=== PATIENT | male | born 1965 | race Caucasian/White ===

== ENCOUNTER 2017-07-20 21:24 | Emergency (ER) ==
[2017-07-20 21:35] VITALS: BP 127/85; TEMP 96.5; BMI 22.3
[2017-07-20] MEDS ORDERED: KEFLEX PO STA (23:00)
--- NOTE | 2017-07-20 23:06 | ED.PDOC ---
General ED Provider: Dr. ALKA BAIRD Chief Complaint: Finger Pain/Injury Stated Complaint: Ring on the 4th finger on the left with noted redness, edema. Patient tried to get it off last night with fishing line but unsuccessful. Time Seen by Physician: 23:04 Mode of Arrival: Walk-In Information Source: Patient Exam Limitations: No limitations Nursing and Triage Documentation Reviewed and Agree: Yes Skin Complaint Exam - Laceration/Abrasion/Hand Complaint/Exam Location of Injury: Right, Digit #4 Mechanism of Injury: Laceration, FB potential (Ring stuck with finger swelling.) Onset/Duration: 2 days Symptoms Are: Still present Initial Severity: Moderate Current Severity: Severe Aggravating: Movement Alleviating: None Associated Signs and Symptoms: Reports: Erythema, Tingling Related History: Reports: Right hand dominant Differential Diagnoses: Abrasion, Foreign Body Review of Systems - Review Of Systems Constitutional: Reports: No symptoms Eyes: Reports: No symptoms Ears, Nose, Mouth, Throat: Reports: No symptoms Respiratory: Reports: No symptoms Cardiac: Reports: No symptoms GI: Reports: No symptoms : Reports: No symptoms Musculoskeletal: Reports: Joint pain (swelling) Skin: Reports: No symptoms Neurological: Reports: No symptoms Endocrine: Reports: No symptoms Hematologic/Lymphatic: Reports: No symptoms All Other Systems: Reviewed and Negative Past Medical History - Past Medical History Previously Healthy: Yes Endocrine: Reports: DM 2 Cardiovascular: Reports: None Respiratory: Reports: None Hematological: Reports: None Gastrointestinal: Reports: None Genitourinary: Reports: None Neuro/Psych: Reports: Depression Musculoskeletal: Reports: Arthritis Cancer: Reports: None - Surgical History General Surgical History: Reports: Unknown - Family History Family History: Reports: Diabetes - Social History Smoking Status: Current every day smoker Hx Substance Use: No Alcohol Screening: None - Immunizations Tetanus Shot up to Date: No Physical Exam - Physical Exam Appearance: Ill-appearing, Thin Pain Distress: Moderate Neck: Supple Respiratory: Airway patent, Breath sounds clear, Breath sounds equal, Respirations nonlabored Cardiovascular: RRR Skin: Warm, Dry Psychiatric: Anxious Procedures - Foreign Body Removal Location of Foreign Object: right 4th finger Foreign Object: Ring Type of Anesthesia: None (Declined to have any ) Prep: Saline Irrigation: Yes Skin Incised: Yes Instruments Used: Yes: Forceps, Other (Metal cutters ) Foreign Body Identified and Removed: Yes (Ring ) Critical Care Note - Critical Care Note Total Time (mins): 0 Course - Course Orders, Labs, Meds: Orders Category Date Time Status Cephalexin [Keflex] MEDS 07/20/17 23:00 Discontinued 500 mg PO ONCE STA Medications Discontinued Medications Generic Name Dose Route Start Last Admin Trade Name Cassia PRN Reason Stop Dose Admin Cephalexin 500 mg 07/20/17 23:00 07/20/17 23:20 Keflex PO 07/20/17 23:01 500 mg ONCE STA Administration Vital Signs: Temp Pulse Resp BP Pulse Ox 07/20/17 21:26 96.5 F L 92 H 20 127/85 98 Departure - Departure Time of Disposition: 23:04 Disposition: HOME SELF-CARE Discharge Problem: Pain in finger, Foreign body finger Finger injury Qualifiers: Encounter type: initial encounter Laterality: right Qualified Code(s): S69.91XA - Unspecified injury of right wrist, hand and finger(s), initial encounter Instructions: Finger Sprain (ED) Condition: Fair Pt referred to PMD for follow-up: Yes Additional Instructions: Keep wound clean and dry, Apply dressing daily Take antibiotics a prescribed. Prescriptions: Cephalexin [Keflex] 500 mg PO Q8HR #30 capsule Allergies/Adverse Reactions: Allergies Penicillins Adverse Reaction (Verified 07/20/17 21:33) Home Medications: Ambulatory Orders Cephalexin [Keflex] 500 mg PO Q8HR #30 capsule 07/20/17 Multivitamin [One Daily Multivitamin] 1 each PO DAILY 07/20/17 Disposition Discussed With: Patient, Family
== END 2017-07-20 23:25 | disposition home or self-care (01) ==
LOC: ED 21:24
DX: S60.455A Superficial foreign body of left ring finger, initial encounter (principal); F17.210 Nicotine dependence, cigarettes, uncomplicated
CPT/HCPCS: 99283

== ENCOUNTER 2017-07-31 13:11 | Outpatient (CLI) ==
[2017-07-31 13:19] LABS: BASOPHILS # (AUTO) 0.1 K/uL (0-0.2); BASOPHILS % (AUTO) 0.9 % (0.0-3.0); EOSINOPHILS # (AUTO) 0.2 K/ul (0.0-0.7); EOSINOPHILS % (AUTO) 4.3 % (0.0-7.0); HEMATOCRIT 37.1 % (42.0-52.0); HEMOGLOBIN 13.2 g/dl (14.0-18.0); IMMATURE GRANULOCYTE % (AUTO) 0.2 % (0.0-5.0); LYMPHOCYTES # (AUTO) 1.6 K/uL (0.60-3.4); LYMPHOCYTES % (AUTO) 30.3 (10.0-50.0); MEAN CORPUSCULAR HEMOGLOBIN 29.4 pg (27.0-31.0); MEAN CORPUSCULAR HGB CONC 35.6 (31.8-35.4); MEAN CORPUSCULAR VOLUME 82.6 fl (80.0-94.0); MONOCYTES # (AUTO) 0.3 K/uL (0.4-2.0); MONOCYTES % (AUTO) 5.9 (0-10); NEUTROPHILS # (AUTO) 3.2 K/ul (2.0-6.9); NEUTROPHILS % (AUTO) 58.4; PLATELET COUNT 289 10^3/uL (140-440); RED BLOOD COUNT 4.49 10^6/ul (4.70-6.10); WHITE BLOOD COUNT 5.41 K/ul (4.2-10.2)
[2017-07-31 13:56] LABS: ALBUMIN 3.8 g/dL (3.4-5.0); ALBUMIN/GLOBULIN RATIO 1.09; ANION GAP 14.1; BILIRUBIN,TOTAL 0.34 mg/dL (0.00-1.20); BUN/CREATININE RATIO 11.64; CREATININE 1.46 mg/dL (0.60-1.10); POTASSIUM 5.1 mmol/L (3.5-5.1); TOTAL PROTEIN 7.3 g/dL (6.4-8.2)
== END 2017-07-31 13:12 | disposition home or self-care (01) ==
LOC: LAB 13:11
PROVIDERS: ATTEND Nurse Practitioner Family
DX: E11.9 Type 2 diabetes mellitus without complications (principal); E75.6 Lipid storage disorder, unspecified; Z12.5 Encounter for screening for malignant neoplasm of prostate
CPT/HCPCS: 36415; 80053; 80061; 83036; 84439; 84443; 85025

== ENCOUNTER 2017-08-03 09:57 | Outpatient (CLI) ==
--- NOTE | 2017-08-03 10:40 | CT ---
Exam: CT of the brain without intravenous contrast. Comparison: None available. Reason for exam: Dizziness and giddiness FINDINGS: No acute intracranial hemorrhage, mass effect, ventricular dilatation, or territorial infa rction. The quadrigeminal and ambient cisterns are patent. There is no extraaxial fluid collection. There is mild mucosal thickening in the left frontal sinus. There is a small effusion in the right mastoid air cell. No displaced calvarial fractures are seen. Impression: 1. No acute intracranial findings. 2. Mild mucosal thickening in the left frontal sinus with a small right mastoid air cell effusion.
== END 2017-08-03 09:58 | disposition home or self-care (01) ==
LOC: RAD 09:57
PROVIDERS: ATTEND Nurse Practitioner Family
DX: R42 Dizziness and giddiness (principal); E11.9 Type 2 diabetes mellitus without complications
CPT/HCPCS: 93005; 93010

== ENCOUNTER 2017-08-08 13:39 | Observation (INO) ==
[2017-08-08] MEDS ORDERED: TYLENOL PO PRN (13:54)
[2017-08-08 14:10] VITALS: BMI 20.9
[2017-08-08] MEDS: SODIUM CHLORIDE 1,000 ML IV SCH (14:28)
--- NOTE | 2017-08-08 14:53 | DI ---
EXAM: Two views of the chest. History: Cough. Comparison: Chest radiograph 08/31/2010 Findings: Heart size is within normal limits. No focal consolidation. No appreciable pleural fluid and no pneumothorax. Chronic-appearing compression deformity within the mid thoracic spine. Small nodular density projecting over the left lower lung. Impression: 1. No evidence for pneumonia. 2. Small left lower lung nodular density could represent nipple shadow versus developing lung nodule . Recommend further evaluation with chest radiograph with nipple markers or chest CT.
[2017-08-08 15:00] LABS: BASOPHILS % (AUTO) 0.7 % (0.0-3.0); EOSINOPHILS # (AUTO) 0.2 K/ul (0.0-0.7); EOSINOPHILS % (AUTO) 3.1 % (0.0-7.0); HEMATOCRIT 37.1 % (42.0-52.0); HEMOGLOBIN 13.3 g/dl (14.0-18.0); IMMATURE GRANULOCYTE % (AUTO) 0.3 % (0.0-5.0); LYMPHOCYTES # (AUTO) 1.7 K/uL (0.60-3.4); LYMPHOCYTES % (AUTO) 29.3 (10.0-50.0); MEAN CORPUSCULAR HEMOGLOBIN 29.6 pg (27.0-31.0); MEAN CORPUSCULAR HGB CONC 35.8 (31.8-35.4); MEAN CORPUSCULAR VOLUME 82.6 fl (80.0-94.0); MONOCYTES # (AUTO) 0.3 K/uL (0.4-2.0); MONOCYTES % (AUTO) 4.9 (0-10); NEUTROPHILS # (AUTO) 3.6 K/ul (2.0-6.9); NEUTROPHILS % (AUTO) 61.7; PLATELET COUNT 253 10^3/uL (140-440); RED BLOOD COUNT 4.49 10^6/ul (4.70-6.10)
[2017-08-08 15:17] LABS: ALBUMIN 3.7 g/dL (3.4-5.0); ALBUMIN/GLOBULIN RATIO 1.03; ANION GAP 13.4; BILIRUBIN,TOTAL 0.32 mg/dL (0.00-1.20); BUN/CREATININE RATIO 10.81; CALCIUM 9.8 mg/dL (8.2-10.2); CREATININE 1.48 mg/dL (0.60-1.10); POTASSIUM 4.4 mmol/L (3.5-5.1); TOTAL PROTEIN 7.3 g/dL (6.4-8.2)
[2017-08-08] MEDS: GLUCOPHAGE PO SCH (17:17)
[2017-08-08] MEDS: HUMULIN R SUBCUT PRN ×2 (17:18→20:06)
[2017-08-08 18:39] LABS: BILIRUBIN,URINE Negative (NEGATIVE); KETONES,URINE Negative (NEGATIVE); LEUKOCYTE ESTERASE ,URINE Negative (NEGATIVE); NITRITE,URINE Negative (NEGATIVE); PROTEIN,URINE Negative (NEGATIVE); URINE, BLOOD 1+ (NEGATIVE)
[2017-08-08 19:08] LABS: ADD URINE MICROSCOPIC YES
[2017-08-08 19:10] LABS: BACTERIA,URINE 1+ (NOT PRESENT)
[2017-08-08] MEDS: NEURONTIN PO SCH (20:07)
[2017-08-08] MEDS ORDERED: ATIVAN PO STA (20:41)
[2017-08-08] MEDS ORDERED: NON-FORMULARY MEDICATION (Metformin Hcl [Metformin Hcl] 1,000 MG) PO SCH ×22 (21:00)
[2017-08-09] MEDS: SODIUM CHLORIDE 1,000 ML IV SCH (02:31)
[2017-08-09 04:30] LABS: BASOPHILS % (AUTO) 0.5 % (0.0-3.0); EOSINOPHILS # (AUTO) 0.2 K/ul (0.0-0.7); HEMATOCRIT 32.2 % (42.0-52.0); HEMOGLOBIN 11.4 g/dl (14.0-18.0); IMMATURE GRANULOCYTE % (AUTO) 0.4 % (0.0-5.0); LYMPHOCYTES # (AUTO) 1.7 K/uL (0.60-3.4); LYMPHOCYTES % (AUTO) 21.5 (10.0-50.0); MEAN CORPUSCULAR HEMOGLOBIN 29.4 pg (27.0-31.0); MEAN CORPUSCULAR HGB CONC 35.4 (31.8-35.4); MONOCYTES # (AUTO) 0.4 K/uL (0.4-2.0); MONOCYTES % (AUTO) 5.3 (0-10); NEUTROPHILS # (AUTO) 5.4 K/ul (2.0-6.9); NEUTROPHILS % (AUTO) 69.3; PLATELET COUNT 226 10^3/uL (140-440); RED BLOOD COUNT 3.88 10^6/ul (4.70-6.10); WHITE BLOOD COUNT 7.72 K/ul (4.2-10.2)
[2017-08-09 04:48] LABS: ALBUMIN 3.1 g/dL (3.4-5.0); ALBUMIN/GLOBULIN RATIO 1.15; ANION GAP 11.1; BILIRUBIN,TOTAL 0.19 mg/dL (0.00-1.20); BUN/CREATININE RATIO 18.18; CALCIUM 9.2 mg/dL (8.2-10.2); CREATININE 0.99 mg/dL (0.60-1.10); POTASSIUM 4.1 mmol/L (3.5-5.1); TOTAL PROTEIN 5.8 g/dL (6.4-8.2)
[2017-08-09 05:06] VITALS: BP 138/80; TEMP 98.2
[2017-08-09] MEDS: GLUCOPHAGE PO SCH (08:12)
[2017-08-09] MEDS: NEURONTIN PO SCH (08:12)
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
== END 2017-08-09 08:59 | disposition home or self-care (01) ==
LOC: MEDSURG B 13:39 → INTOOBSV 13:39
PROVIDERS: ADMIT Emergency Medicine; ATTEND Emergency Medicine
DX: E11.65 Type 2 diabetes mellitus with hyperglycemia (principal); T23.002A Burn of unspecified degree of left hand, unspecified site, initial encounter; M19.90 Unspecified osteoarthritis, unspecified site; F32.9 Major depressive disorder, single episode, unspecified; F19.90 Other psychoactive substance use, unspecified, uncomplicated; F17.200 Nicotine dependence, unspecified, uncomplicated; Z79.84 Long term (current) use of oral hypoglycemic drugs; Z79.899 Other long term (current) drug therapy
CPT/HCPCS: 36415; 80053; 81001; 82962; 85025; 87086; 93005; 93010; 96360; 96361

== ENCOUNTER 2017-09-28 11:50 | Outpatient (CLI) ==
--- NOTE | 2017-09-28 13:48 | MRI ---
EXAM: MRI brain without IV contrast. DATE: 09/28/2017. HISTORY: Ataxia, balance disorder. TECHNIQUE: Sagittal T1W, axial T2W, axial FLAIR, axial T1W, axial DWI, and coronal T2W GRE sequences of the brain were obtained using 1.2 Meredith magnet. No IV contrast. Note: Motion artifacts on several sequences limit sensitivity. COMPARISON: CT head 08/03/2017. FINDINGS: The ventricles, cisterns, and most cerebral sulci are are normal in size and configuration . Many parietal lobe sulci bilaterally are slightly prominent. No midline shift, mass effect or abno rmal extra-axial fluid collection is apparent. No acute infarct, hemorrhage or neoplasm is identifie d. The casper - white matter differentiation is normal. The 7th/8th cranial nerve complexes, cerebell opontine angles, brainstem, and visible cervical spinal cord are normal. There is no cerebellar tons illar ectopia. The pituitary gland is normal in size and signal. Corpus callosum is normal in size and configuration. Left vertebral artery is dominant. Vertebrobasilar arterial system is tortuous. Flow voids are present in the major intracranial arteries and in the dural venous sinuses. No aneur ysm, AVM or dural venous sinus thrombosis is apparent. No orbit abnormality is identified. There is limited pneumatization of right mastoid air cells. small number of right mastoid air cells which ar e pneumatized demonstrate T2W bright, T1W intermediate signal. Left mastoid air cells are unremarkab le. There is marked circumferential mucosal thickening in the right maxillary sinus. Several ethmoi d air cells and the left frontal sinus reveal minor mucosal thickening. Leftward nasal septal deviat ion is evident at the level of the middle/superior turbinates. No neck mass or lymphadenopathy is de tected. No calvarial neoplasm or acute fracture is evident. IMPRESSIONS: 1. No acute infarct, hemorrhage, mass or hydrocephalus. 2. Minor bilateral parietal lobe involutional change. 3. Left frontal, bilateral ethmoid, right maxillary sinus disease. 4. Mild right mastoid effusion vs mastoiditis.
== END 2017-09-28 11:51 | disposition home or self-care (01) ==
LOC: RAD 11:50
PROVIDERS: ATTEND Emergency Medicine
DX: R27.0 Ataxia, unspecified (principal); R26.89 Other abnormalities of gait and mobility

== ENCOUNTER 2018-02-07 11:09 | Outpatient (CLI) | END 2018-02-07 11:10 | disposition home or self-care (01) | LOC: LAB 11:09 | PROVIDERS: ATTEND Emergency Medicine | DX: E11.9 Type 2 diabetes mellitus without complications (principal); E75.6 Lipid storage disorder, unspecified; I10 Essential (primary) hypertension | CPT/HCPCS: 36415; 80053; 80061; 83036; 84443; 85025 ==

== ENCOUNTER 2018-02-07 22:32 | Observation (INO) ==
[2018-02-07 23:15] VITALS: BMI 18.4
[2018-02-08] MEDS: HUMULIN R SUBCUT PRN ×2 (00:34→02:11)
[2018-02-08 05:28] VITALS: BP 139/84; TEMP 97.5
[2018-02-08] MEDS ORDERED: GLUCOPHAGE PO SCH (08:00)
[2018-02-08] MEDS ORDERED: ANTIVERT PO SCH (09:00)
[2018-02-08] MEDS ORDERED: NEURONTIN PO SCH (09:00)
[2018-02-08] MEDS ORDERED: WELLBUTRIN XL PO SCH (09:00)
[2018-02-08] MEDS ORDERED: NON-FORMULARY MEDICATION (Metformin Hcl [Metformin Hcl] 1,000 MG) PO SCH (09:00)
[2018-02-08] MEDS ORDERED: NON-FORMULARY MEDICATION (Sitagliptin Phosphate [Januvia] 100 MG) PO SCH (09:00)
[2018-02-08] MEDS ORDERED: JANUVIA PO SCH (09:00)
[2018-02-08] MEDS ORDERED: NON-FORMULARY MEDICATION (Meclizine Hcl [Meclizine Hcl] 12.5 MG) PO SCH (09:00)
[2018-02-08] MEDS ORDERED: NON-FORMULARY MEDICATION (Bupropion Hcl [Wellbutrin Xl] 150 MG) PO SCH (09:00)
[2018-02-08] MEDS ORDERED: INSULIN GLARGINE HUM REC ANLOG 8 UNIT SQ SCH (21:00)
[2018-02-08] MEDS ORDERED: [UNRECOGNIZED DRUG - OTHER] SQ SCH (21:00)
[2018-02-08] MEDS ORDERED: LANTUS SUBCUT SCH (21:00)
--- NOTE | 2018-04-11 13:40 | AMA ---
DATE OF SERVICE: 02/08/18 HISTORY: The patient was admitted for uncontrolled diabetes. By next day morning the patient felt a bit better. Decided that he doesn't want to stay in the hospital. Said that he has to go and take care of some stuff. Explained that this can be very dangerous and can be lethal with given his blood sugars been high. He did not listen and says that he just has to leave the hospital and left the hospital without signing AMA paper. We did explain that in case he decides to change his mind and come back he can come back. ALINA
== END 2018-02-08 09:45 | disposition left against medical advice (07) ==
LOC: MEDSURG B 22:32 → INTOOBSV 22:32
PROVIDERS: ADMIT Emergency Medicine; ATTEND Emergency Medicine
DX: E11.00 Type 2 diabetes mellitus with hyperosmolarity without nonketotic hyperglycemic-hyperosmolar coma (NKHHC) (principal); E86.0 Dehydration; R27.0 Ataxia, unspecified; R42 Dizziness and giddiness; I10 Essential (primary) hypertension; E75.6 Lipid storage disorder, unspecified; H54.3 Unqualified visual loss, both eyes; F17.210 Nicotine dependence, cigarettes, uncomplicated; Z79.899 Other long term (current) drug therapy
CPT/HCPCS: 36415; 80053; 80061; 82962; 83036; 84443; 85025; 99223; 99233

== ENCOUNTER 2018-02-14 13:47 | Emergency (ER) ==
[2018-02-14 13:50] VITALS: BP 103/67; TEMP 99.5; BMI 22.4
[2018-02-14] MEDS ORDERED: SODIUM CHLORIDE 1,000 ML IV STA (13:55)
--- NOTE | 2018-02-14 14:47 | CT ---
EXAM: CT abdomen pelvis without contrast HISTORY: Left upper quadrant pain with nausea COMPARISON: CT abdomen 03/16/2009 TECHNIQUE: Serial axial images of the abdomen pelvis were performed from the lung bases through the inferior pelvis without contrast. These were viewed in multiple planes. FINDINGS: Lung bases demonstrate right lower lobe airway thickening and central lobular ground-glass nodularity. Evaluation is limited due to lack of contrast. The liver is unremarkable. The gallbladder is mildly distended. The adrenal glands are normal. Spleen is unremarkable. Pancreas is normal. Stomach is distended. Small bowel in the abdomen pelvis is unremarkable. The appendix is normal. The colon is unremarkabl e. The prostate is normal. Urinary bladder is large and distended. The osseous structures are unrem arkable. IMPRESSION: No acute abnormality to account for patient's symptoms. The right lower lobe airway thickening and central lobular ground-glass nodularity consistent with sm all airways infection.
--- NOTE | 2018-02-14 15:53 | ED.PDOC ---
General ED Provider: Dr. AREN KLEIN Chief Complaint: Diabetes Stated Complaint: HIGH BLOOD SUGAR OUT PT Time Seen by Physician: 14:00 (SEN WITH CHIDI PT'S NURSE ) Mode of Arrival: Wheelchair Information Source: Patient, Other (PT STATED HIS BLOOD SUGAR WAS TOO HIGH FOR MACHINE TO READ ) Primary Care Provider: [facility] Nursing and Triage Documentation Reviewed and Agree: Yes Reviewed sepsis parameters & appropriate labs ordered?: Yes (NO CHEST PAIN NO NEURO ISSUES OFFERED ) System Inflammatory Response Syndrome: Not Applicable Sepsis Protocol: For patient's 13 years and over: Temp is 96.8 and below OR 101 and greater Pulse >90 BPM Resp >20/minute Acutely Altered Mental Status Are patient's symptoms suggestive of a new infection, such as: -Pneumonia -Skin, Soft Tissue -Endocarditis -UTI -Bone, Joint Infection -Implantable Device -Acute Abdominal Infection -Wound Infection -Meningitis -Blood Stream Catheter Infection -Unknown System Inflammatory Response Syndrome: Not Applicable Endocrine Complaint Exam - Diabetic Complication Complaint/Exam Onset/Duration: TODAY Symptoms Are: Still present Timing: Constant Initial Severity: Moderate Current Severity: Moderate Character: Alert Aggravating: Reports: None Alleviating: Reports: None Associated Signs and Symptoms: Reports: Polyuria, Nausea. Denies: Decreased LOC , Polydipsia, Polyphagia, Weight loss, Abdominal pain, Vomiting, Fever, Diaphoresis, Fruity breath Related History: Reports: Similar episode, DM 2. Denies: Neuropathy, Retinopathy Last Glucometer Reading: TOO HIGH TODAY LUNCH Cardiac Risk Factors: Reports: DM, Hypertension CVA Risk Factors: Reports: DM, Hypertension Serious Bacterial Infection Risk Factors: Reports: None. Denies: Zapien catheter , Permanent venous catheter, Sickle Cell Disease, Ill contact, Travel history, Chemotherapy, HIV, Post Splenectomy, Insect bites Related Surgical History: Reports: None Acetone on Breath: No Dry Mucous Membranes: No Kussmaul Respirations: No Glascow Coma Scale (see protocol): 15 Meningeal Signs: No Focal Weakness: None Focal Sensory Loss: None Gait: Normal Nystagmus Present: No Gag Reflex Present: Yes Finger to Nose: Normal Romberg Test Positive: No Babinski Sign: Negative Right, Negative Left Differential Diagnoses: Diabetic Ketoacidosis, Hyperosmolar State, Hyperglycemia Quality Indicator For Non-Traumatic Chest Pain/Syncope: EKG Performed Review of Systems - Review Of Systems Constitutional: Reports: Malaise, Weakness, Loss of appetite Eyes: Reports: No symptoms Ears, Nose, Mouth, Throat: Reports: No symptoms Respiratory: Reports: No symptoms Cardiac: Reports: No symptoms GI: Reports: No symptoms : Reports: No symptoms Musculoskeletal: Reports: No symptoms Skin: Reports: No symptoms Neurological: Reports: No symptoms Endocrine: Reports: No symptoms Hematologic/Lymphatic: Reports: No symptoms All Other Systems: Reviewed and Negative Past Medical History - Past Medical History Previously Healthy: Yes Endocrine: Reports: DM 2 Cardiovascular: Reports: None Respiratory: Reports: None Hematological: Reports: None Gastrointestinal: Reports: None Genitourinary: Reports: None Neuro/Psych: Reports: Depression Musculoskeletal: Reports: Arthritis Cancer: Reports: None - Surgical History General Surgical History: Reports: Unknown - Family History Family History: Reports: Diabetes - Social History Smoking Status: Current every day smoker, Heavy tobacco smoker Hx Substance Use: No Alcohol Screening: None Physical Exam - Physical Exam Appearance: Well-appearing, No pain distress, Well-nourished Eyes: PRADEEP, EOMI, Conjunctiva clear ENT: Ears normal, Nose normal, Oropharynx normal Respiratory: Airway patent, Breath sounds clear, Breath sounds equal, Respirations nonlabored Cardiovascular: RRR, Pulses normal, No rub, No murmur GI/: Soft, Nontender, No masses, Bowel sounds normal, No Organomegaly Musculoskeletal: Normal strength, ROM intact, No edema, No calf tenderness Skin: Warm, Dry, Normal color Neurological: Sensation intact, Motor intact, Reflexes intact, Cranial nerves intact, Alert, Oriented Psychiatric: Affect appropriate, Mood appropriate Critical Care Note - Critical Care Note Total Time (mins): 0 Course - Course Hematology/Chemistry: 02/14/18 14:00 Orders, Labs, Meds: Lab Review 02/14/18 02/14/18 02/14/18 13:55 14:00 14:00 WBC 6.85 RBC 3.65 L Hgb 10.6 L Hct 31.0 L MCV 84.9 MCH 29.0 MCHC 34.2 RDW Coeff of Joe 13.3 Plt Count 236 Immature Gran % (Auto) 0.6 Neut % (Auto) 74.3 Lymph % (Auto) 17.8 [place] % (Auto) 3.9 Eos % (Auto) 2.8 Baso % (Auto) 0.6 Immature Gran # (Auto) 0.0 Neut # (Auto) 5.1 Lymph # (Auto) 1.2 [place] # (Auto) 0.3 L Eos # (Auto) 0.2 Baso # (Auto) 0.0 Puncture Site Rrad O2 Saturation 96.0 ABG pH 7.369 ABG pCO2 41.9 ABG pO2 82.0 L ABG HCO3 24.2 ABG Total CO2 25 ABG Base Excess -1 Anshu Test + FiO2 % 21.0 Acetone, Qual None Orders Category Date Time Status ABG DRAW REQUEST Stat CARDIO 02/14/18 13:55 Completed EKG-(ED ONLY) Stat CARDIO 02/14/18 13:54 Completed ED IV/MEDIPORT/POWERPORT .ONCE EMERGENCY 02/14/18 13:54 Active ABG Stat LAB 02/14/18 13:55 Completed ACETONE, QUALITATIVE Stat LAB 02/14/18 14:00 Completed CBC W/ AUTO DIFF Stat LAB 02/14/18 14:00 Completed COMPREHENSIVE METABOLIC PANEL Stat LAB 02/14/18 14:00 Received CREATINE KINASE Stat LAB 02/14/18 14:00 Received TROPONIN I Stat LAB 02/14/18 14:00 Received URINALYSIS C & S IF INDICATED Stat LAB 02/14/18 13:54 Uncollected 0.9 % Sodium Chloride [Saline Flush] MEDS 02/14/18 13:54 Active 1 syr IVF PRN PRN Sodium Chloride 0.9% [Sodium Chloride] 1,000 ml MEDS 02/14/18 13:[address] ABDOMEN/PELVIS WO CONTRAST Stat RADS 02/14/18 13:54 Completed Medications Generic Name Dose Route Start Last Admin Trade Name Freq PRN Reason Stop Dose Admin Sodium Chloride 1 syr 02/14/18 13:54 02/14/18 14:22 Saline Flush IVF 1 syr PRN PRN Administration To flush IV Discontinued Medications Generic Name Dose Route Start Last Admin Trade Name Freq PRN Reason Stop Dose Admin Sodium Chloride 1,000 mls @ 1,000 mls/hr 02/14/18 13:55 02/14/18 14:22 Sodium Chloride IV 02/14/18 14:54 1,000 mls/hr BOLUS STA Administration Vital Signs: Temp Pulse Resp BP Pulse Ox 02/14/18 13:47 99.5 F 101 H 20 103/67 96 Departure - Departure Time of Disposition: 15:54 (DISCUSSED THE LABS HOWEVER PT STATED HE WANTS TO LEAVE .RISKS DISCUSSED PT STILL REFUSED TO STAY) Disposition: AMA Discharge Problem: Uncontrolled diabetes mellitus Qualifiers: Diabetes mellitus type: type 2 Instructions: Type 1 Diabetes in Adults (ED) Condition: Good Pt referred to PMD for follow-up: Yes IPMP verified?: No Additional Instructions: Please call your Family Physician as soon as possible to schedule a follow-up appointment. Allergies/Adverse Reactions: Allergies Penicillins Adverse Reaction (Verified 02/14/18 13:50) Disposition Discussed With: Patient
== END 2018-02-14 16:00 | disposition left against medical advice (07) ==
LOC: ED 13:47
DX: E11.9 Type 2 diabetes mellitus without complications (principal); I10 Essential (primary) hypertension; F17.210 Nicotine dependence, cigarettes, uncomplicated
CPT/HCPCS: 36415; 80053; 82009; 82550; 82803; 82962; 84484; 85025; 93005; 93010; 96360; 99284

== ENCOUNTER 2018-02-20 10:23 | Outpatient (CLI) ==
--- NOTE | 2018-02-20 12:02 | US ---
EXAM: ULTRASOUND CAROTID DUPLEX, BILATERAL HISTORY: Dizziness FINDINGS: Aden-scale ultrasound, color Doppler and spectral analysis was performed. Velocities are in meters per second. By aden scale and color Doppler imaging, there appears to be only minimal intimal thickening and scat tered atherosclerotic plaque in both carotid systems, including the bulbs and internal carotid arteri es. RIGHT: External carotid artery peak systolic velocity: 0.7/0.1 Common carotid artery peak systolic velocity/end diastolic velocity: 0.6/0.1 Internal carotid artery peak systolic velocity: 0.7 ICA/CCA peak systolic velocity ratio: 1.2 ICA end diastolic velocity: 0.3 LEFT: External carotid artery peak systolic velocity: 1.0/0.1 Common carotid artery peak systolic velocity/end diastolic velocity: 0.8/0.2 Internal carotid artery peak systolic velocity: 0.6 ICA/CCA peak systolic velocity ratio: 0.8 ICA end diastolic velocity: 0.3 The right and left vertebral arteries were antegrade. IMPRESSION: 1. By aden scale and color Doppler imaging, there appears to be only minimal intimal thickening and scattered atherosclerotic plaque in both carotid systems, including the bulbs and internal carotid ar teries. 2. Internal carotid artery peak systolic velocities and ICA/CCA peak systolic velocity ratios indica te no hemodynamically significant stenosis bilaterally. 3. Both vertebral arteries were antegrade.
== END 2018-02-20 10:24 | disposition home or self-care (01) ==
LOC: RAD 10:23
PROVIDERS: ATTEND Emergency Medicine
DX: R42 Dizziness and giddiness (principal); E11.9 Type 2 diabetes mellitus without complications

== ENCOUNTER 2018-03-30 14:14 | Inpatient (IN) | payer OTHER ==
[2018-03-30 15:04] VITALS: BMI 22.7
[2018-03-30] MEDS ORDERED: TYLENOL PO PRN (15:31)
[2018-03-30] MEDS ORDERED: VANCOMYCIN 1 GM in SODIUM CHLORIDE 250 ML IV ONE (16:00)
[2018-03-30] MEDS ORDERED: INSULIN GLARGINE HUM REC ANLOG 8 UNIT SQ SCH ×2 (17:00→21:00)
[2018-03-30] MEDS ORDERED: [UNRECOGNIZED DRUG - OTHER] SQ SCH (17:00)
--- NOTE | 2018-03-30 17:03 | CT ---
EXAM: CT left foot without contrast. HISTORY: Left first toe wound. COMPARISON: None available. TECHNIQUE: Multiple axial images of the left foot were obtained without intravenous contrast. Image s were reformatted in the sagittal and coronal planes. FINDINGS: Dorsal first toe ulcer noted with adjacent subcutaneous edema. No drainable fluid collect ion or subcutaneous air identified. The underlying cortex of the first proximal and distal phalanges appear intact without osseous destruction or periosteal reaction. There is joint space narrowing wi th spurring at the first MTP joint with cystic change in the medial first metatarsal head and possibl e extraarticular erosions. Small erosions seen in the medial distal aspect of the first proximal pha lanx on axial image 15. No other erosions are seen. No fracture or dislocation detected. There is a linear 1 cm metallic foreign object in the medial subcutaneous tissues of the third digit at the le veronica of the proximal interphalangeal joint. IMPRESSION: 1. Dorsal first toe ulcer without evidence for osteomyelitis. 2. First MTP osteoarthritis. Question gout. 3. A 1 cm metallic foreign object in the subcutaneous tissues medial to the third PIP joint.
[2018-03-30] MEDS: ZESTRIL PO SCH (17:29)
[2018-03-30] MEDS: SODIUM CHLORIDE 1,000 ML IV SCH (17:29)
[2018-03-30] MEDS: LOVENOX SUBCUT SCH (17:29)
[2018-03-30] MEDS: ROCEPHIN 1 GM in SODIUM CHLORIDE 50 ML IV SCH (17:31)
[2018-03-30] MEDS: LANTUS SUBCUT SCH (18:12)
[2018-03-30] MEDS: NEURONTIN PO SCH (20:10)
[2018-03-30] MEDS: ANTIVERT PO SCH (20:11)
[2018-03-30] MEDS ORDERED: [UNRECOGNIZED DRUG - OTHER] SQ SCH (21:00)
[2018-03-30] MEDS ORDERED: NON-FORMULARY MEDICATION (Meclizine Hcl [Meclizine Hcl] 12.5 MG) PO SCH (21:00)
[2018-03-31] MEDS ORDERED: NON-FORMULARY MEDICATION (Sitagliptin Phosphate [Januvia] 100 MG) PO SCH (09:00)
[2018-03-31] MEDS: ANTIVERT PO SCH ×3 (09:54→21:37)
[2018-03-31] MEDS: JANUVIA PO SCH (09:55)
[2018-03-31] MEDS: ZESTRIL PO SCH (09:55)
[2018-03-31] MEDS: NEURONTIN PO SCH ×2 (09:55→21:38)
[2018-03-31] MEDS: LANTUS SUBCUT SCH (09:55)
[2018-03-31] MEDS: WELLBUTRIN XL PO SCH (09:55)
[2018-03-31] MEDS: ROCEPHIN 1 GM in SODIUM CHLORIDE 50 ML IV SCH (09:55)
[2018-03-31] MEDS: LOVENOX SUBCUT SCH (09:57)
[2018-03-31] MEDS: VANCOMYCIN 750 MG in SODIUM CHLORIDE 250 ML IV SCH ×2 (10:46→21:39)
[2018-03-31] MEDS ORDERED: ROCEPHIN ONE (14:23)
[2018-04-01] MEDS: SODIUM CHLORIDE 1,000 ML IV SCH ×2 (02:25→08:21)
[2018-04-01] MEDS: ZESTRIL PO SCH (08:20)
[2018-04-01] MEDS: NEURONTIN PO SCH ×2 (08:20→21:41)
[2018-04-01] MEDS: ANTIVERT PO SCH ×3 (08:20→21:38)
[2018-04-01] MEDS: JANUVIA PO SCH (08:20)
[2018-04-01] MEDS: ROCEPHIN 1 GM in SODIUM CHLORIDE 50 ML IV SCH (08:20)
[2018-04-01] MEDS: WELLBUTRIN XL PO SCH (08:20)
[2018-04-01] MEDS: LOVENOX SUBCUT SCH (08:21)
[2018-04-01] MEDS: LANTUS SUBCUT SCH (08:27)
[2018-04-01] MEDS: VANCOMYCIN 750 MG in SODIUM CHLORIDE 250 ML IV SCH ×2 (09:59→21:37)
[2018-04-01] MEDS: HUMULIN R SUBCUT PRN ×2 (18:44→21:38)
[2018-04-02] MEDS: ROCEPHIN 1 GM in SODIUM CHLORIDE 50 ML IV SCH (09:39)
[2018-04-02] MEDS: ANTIVERT PO SCH ×3 (09:40→20:50)
[2018-04-02] MEDS: JANUVIA PO SCH (09:41)
[2018-04-02] MEDS: ZESTRIL PO SCH (09:41)
[2018-04-02] MEDS: NEURONTIN PO SCH ×2 (09:41→20:51)
[2018-04-02] MEDS: WELLBUTRIN XL PO SCH (09:41)
[2018-04-02] MEDS: LANTUS SUBCUT SCH (09:42)
[2018-04-02] MEDS: LOVENOX SUBCUT SCH (09:44)
[2018-04-02] MEDS: SODIUM CHLORIDE 1,000 ML IV SCH ×2 (09:47→09:48)
[2018-04-02] MEDS: HUMULIN R SUBCUT PRN ×2 (10:45→20:51)
[2018-04-02] MEDS: VANCOMYCIN 750 MG in SODIUM CHLORIDE 250 ML IV SCH ×2 (11:45→20:49)
[2018-04-03] MEDS: SODIUM CHLORIDE 1,000 ML IV SCH (05:24)
[2018-04-03] MEDS: HUMULIN R SUBCUT PRN (05:28)
[2018-04-03 05:44] VITALS: BP 130/75; TEMP 97.9
[2018-04-03] MEDS: ZESTRIL PO SCH (08:07)
[2018-04-03] MEDS: ANTIVERT PO SCH (08:07)
[2018-04-03] MEDS: JANUVIA PO SCH (08:07)
[2018-04-03] MEDS: NEURONTIN PO SCH (08:08)
[2018-04-03] MEDS: WELLBUTRIN XL PO SCH (08:08)
[2018-04-03] MEDS: LOVENOX SUBCUT SCH (08:08)
[2018-04-03] MEDS: ROCEPHIN 1 GM in SODIUM CHLORIDE 50 ML IV SCH (08:08)
[2018-04-03] MEDS: LANTUS SUBCUT SCH (08:09)
[2018-04-03] MEDS: VANCOMYCIN 750 MG in SODIUM CHLORIDE 250 ML IV SCH (10:11)
--- NOTE | 2018-04-03 13:35 | PN ---
DATE OF SERVICE: 04/02/18 SUBJECTIVE: Left first toe wound getting the IV antibiotics. The patient is going out to smoke, strictly advised him not to do. REVIEW OF SYSTEMS: CONSTITUTIONAL: No fever, no chills. HEENT: Normal. ENDOCRINE: No weight gain, no weight loss. CVS: No angina symptoms. No CHF symptoms. No palpitations. No atypical chest pain for CAD. No shortness of breath. No PND, no orthopnea. RESPIRATORY: No cough, no hemoptysis. GI: No nausea, no vomiting. No abdominal pain. : No hematuria. No polyuria. MUSCULOSKELETAL: No joint swelling. PSYCHIATRIC: Not anxious. No depression. No suicidal thoughts. No homicidal thoughts. SKIN: Intact. No rash. PHYSICAL EXAMINATION: V/S: Blood pressure 156/89, respiratory rate 16, heart rate 89, temperature 97.8 with saturation is 99%. HEENT: Normocephalic, atraumatic. Mucosa dry. Pallor positive. No icterus. NECK: Supple. No JVD, no carotid bruit. No lymphadenopathy. LUNGS: Clear to auscultation. No rales or rhonchi. HEART: S1, S2 normal. No S3. No murmur, gallop or regurgitation. ABDOMEN: Soft, nontender. Bowel sounds active. No rigidity. No rebound or guarding. No CVA tenderness. EXTREMITIES: No cyanosis, clubbing or pedal edema. Left big toe the wound has more drainage today, yellow to bloody looking. Margins are red and healthy. Swelling in the left foot is better. MUSCULOSKELETAL: No joint swelling. NEUROLOGIC: Awake, alert, oriented times three. No focal deficit. LYMPHATIC: No lymph nodes palpable. SKIN: Intact. LABS: Sodium 137, potassium 4.3, chloride 106, bicarb 25, BUN 20, creatinine 1.17 and glucose 162. WBC 7.47, hgb 9.2, hct 27.2, plt count 256. ASSESSMENT: 1. Left toe ulcer growing, Morganella Morganii 2. Diabetes foot 3. Diabetes uncontrolled, A1c 14.4 4. Hypertension 5. Dyslipidemia 6. Legally blind 7. Methamphetamine user PLAN: 1. Continue the Rocephin and Vancomycin 2. Initially done the CT scan of the left foot and did not show any osteomyelitis which was discussed with the patient TIME SPENT: More than 35 minutes MTDD
--- NOTE | 2018-04-03 13:42 | PN ---
DATE OF SERVICE: 04/01/18 SUBJECTIVE: The patient was admitted with the left big toe ulcer. Been getting IV antibiotics. Swelling in the toe and foot are better. REVIEW OF SYSTEMS: CONSTITUTIONAL: No fever, no chills. HEENT: Normal. ENDOCRINE: No weight gain, no weight loss. CVS: No angina symptoms. No CHF symptoms. No palpitations. No atypical chest pain for CAD. No shortness of breath. No PND, no orthopnea. RESPIRATORY: No cough, no hemoptysis. GI: No nausea, no vomiting. No abdominal pain. : No hematuria. No polyuria. MUSCULOSKELETAL: No joint swelling. PSYCHIATRIC: Not anxious. No depression. No suicidal thoughts. No homicidal thoughts. SKIN: Intact. No rash. PHYSICAL EXAMINATION: V/S: Blood pressure 154/90, respiratory rate 20, heart rate 87, temperature 98.2 and saturation 99%. HEENT: Normocephalic, atraumatic. Mucosa dry. Pallor positive. No icterus. NECK: Supple. No JVD, no carotid bruit. No lymphadenopathy. LUNGS: Clear to auscultation. No rales or rhonchi. HEART: S1, S2 normal. No S3. No murmur, gallop or regurgitation. ABDOMEN: Soft, nontender. Bowel sounds active. No rigidity. No rebound or guarding. No CVA tenderness. EXTREMITIES: No cyanosis, clubbing. 1+ pitting edema in the leg. Left big toe swelling and redness is better. Left big toe open ulcer still has a lot of oozing clear to yellow puss. MUSCULOSKELETAL: No joint swelling. NEUROLOGIC: Awake, alert, oriented times three. No focal deficit. LYMPHATIC: No lymph nodes palpable. SKIN: Intact. LABS: WBC 7.47, hgb 9.2, hct 27.2, plt count 256, sodium 137, potassium 4.3, chloride 106, bicarb 25, BUN 20, creatinine 1.17, glucose 162. ASSESSMENT: 1. Left first toe ulcer growing Morganella Morganii 2. Diabetes uncontrolled 3. Noncompliance 4. Legally blind 5. Hypertension 6. Dyslipidemia 7. Methamphetamine user PLAN: 1. Continue the Rocephin 2. Vancomycin 3. Accu-checks with coverage 4. Keep the legs elevated. TIME SPENT: More than 35 minutes MTDD
--- NOTE | 2018-04-03 15:13 | PN ---
DATE OF SERVICE: 03/31/18 SUBJECTIVE: The patient was admitted from the clinic for the left first toe ulcer and the cellulitis and whole foot was swollen. CT of the foot did not show any osteomyelitis. ESR was 95. Started on the antibiotics Rocephin and Vancomycin. Accu-checks been checked and sugars been controlled. The patient's redness and swelling is still present, hurts to walk otherwise no fever or chills. Toxicology screen came positive for the amphetamine and methamphetamine. REVIEW OF SYSTEMS: CONSTITUTIONAL: No fever, no chills. HEENT: Normal. ENDOCRINE: No weight gain, no weight loss. CVS: No angina symptoms. No CHF symptoms. No palpitations. No atypical chest pain for CAD. No shortness of breath. No PND, no orthopnea. RESPIRATORY: No cough, no hemoptysis. GI: No nausea, no vomiting. No abdominal pain. : No hematuria. No polyuria. MUSCULOSKELETAL: No joint swelling. PSYCHIATRIC: Not anxious. No depression. No suicidal thoughts. No homicidal thoughts. SKIN: Intact. No rash. PHYSICAL EXAMINATION: V/S: Blood pressure 127/68, respiratory rate 18, heart rate 93, temperature 97.3 , saturation 96%. HEENT: Normocephalic, atraumatic. Mucosa dry. Pallor positive. No icterus. NECK: Supple. No JVD, no carotid bruit. No lymphadenopathy. LUNGS: Clear to auscultation. No rales or rhonchi. HEART: S1, S2 normal. No S3. No murmur, gallop or regurgitation. ABDOMEN: Soft, nontender. Bowel sounds active. No rigidity. No rebound or guarding. No CVA tenderness. EXTREMITIES: No cyanosis, clubbing or pedal edema. Left big toe swelling and redness is present. Open area warm to touch and tender to touch. Range of motion is decreased. The swelling and warmness is up to the ankle area. whole foot is swollen. MUSCULOSKELETAL: No joint swelling. NEUROLOGIC: Awake, alert, oriented times three. No focal deficit. LYMPHATIC: No lymph nodes palpable. SKIN: Intact. LABS: WBC 9.23, hgb 9.2, hct 26.7, plt count 255, sodium 136, potassium 4.2, chloride 103, bicarb 24, BUN 20, creatinine 1.33, glucose 147. ASSESSMENT: 1. Left first toe ulcer with cellulitis 2. Methamphetamine positive 3. Diabetes, labile 4. Legally blind 5. Ataxia 6. Recurrent falls 7. Hypertension 8. Noncompliance PLAN: 1. Continue the Rocephin and Vancomycin 2. Accu-checks with coverage 3. Daily I&O's TIME SPENT: More than 35 minutes MTDD
--- NOTE | 2018-04-04 09:18 | DS ---
DATE OF SERVICE: 04/03/18 FINAL DIAGNOSIS: 1. Left great toe ulcer 2. Cellulitis of the left foot 3. Diabetes foot ulcer 4. Diabetes type 2, uncontrolled 5. Hypertension 6. Neuropathy 7. Anemia 8. Tobacco use 9. Blindness in the eye 10.Ataxia under evaluation 11.Substance use disorder DISCHARGE INSTRUCTIONS: Discharge the patient home. Followup in the [facility] within 5-7 days. [facility] MEDICATIONS AT DISCHARGE: Wellbutrin Neurontin Januvia Zestril Meclizine Lantus increased to 10 units NEW PRESCRIPTIONS: Bactrim DIET INSTRUCTIONS: Cardiac and Diabetic diet ACTIVITY: As much as tolerated DISEASE SPECIFIC EDUCATION: Left toe ulcer and risk of osteomyelitis been discussed and amputation risk been discussed and verbalized understanding. HOSPITAL COURSE: Harsh Blum 52 year old male, poorly controlled diabetes, came to the office with the left first toe ulcer. Left foot is swollen and red. Admitted because of the diabetes and the poorly controlled diabetes. WBC 11.75 with left shift, creatinine was normal. Sugar 307. Drug screen positive for the amphetamine and methamphetamine. CT of the foot did not show any acute osteomyelitis. Elevated ESR present. Started on the Rocephin and Vancomycin. Wet to dry dressing was done. Cultures obtained; Morganella Morganii which is sensitive to the Bactrim. Gradually the left foot swelling is better. The swelling localized more to the left great toe. Ulcer is becoming dry and started slowly bleeding and some scabbing is present. The patient been up and about walking and going to the smoke. At that time the patient being discharged home with oral antibiotics and strictly explained the risk of the osteomyelitis is still there. The patient verbalized understanding. TIME SPENT: MORE THAN 65 MINUTES MTDD
== END 2018-04-03 10:20 | disposition home or self-care (01) | DRG 603 ==
LOC: MEDSURG A 14:14
PROVIDERS: ADMIT Emergency Medicine; ATTEND Emergency Medicine
DX: L03.032 Cellulitis of left toe (principal); L03.116 Cellulitis of left lower limb; B96.89 Other specified bacterial agents as the cause of diseases classified elsewhere; E11.621 Type 2 diabetes mellitus with foot ulcer; I10 Essential (primary) hypertension; G62.9 Polyneuropathy, unspecified; D64.9 Anemia, unspecified; R27.0 Ataxia, unspecified; E75.6 Lipid storage disorder, unspecified; H54.7 Unspecified visual loss; F19.90 Other psychoactive substance use, unspecified, uncomplicated; F17.219 Nicotine dependence, cigarettes, with unspecified nicotine-induced disorders; Z91.19 Patient's noncompliance with other medical treatment and regimen; Z16.11 Resistance to penicillins; Z16.39 Resistance to other specified antimicrobial drug
CPT/HCPCS: 36415; 80053; 80202; 80306; 82962; 85025; 85651; 87040; 87070; 87081; 87186; 97802

== ENCOUNTER 2018-04-24 15:52 | Outpatient (CLI) ==
--- NOTE | 2018-04-24 16:37 | DI ---
EXAM: Three views of the left great toe HISTORY: Swelling for 1 month with no known injury. COMPARISON: CT left foot 03/30/2018 FINDINGS: There are has been interval lytic destructive changes of the distal aspect of the proximal phalanx and the proximal aspect of the distal phalanx of the IP joint of the great toe. There is sof t tissue swelling and soft tissue injury. There is mild degenerative change of the first MTP joint. The adjacent osseous structures are unremarkable. IMPRESSION: Lytic osseous destruction or surrounding the IP joint of the great toe with soft tissue swelling sugg estive of osteomyelitis.
== END 2018-04-24 15:53 | disposition home or self-care (01) ==
LOC: RAD 15:52
PROVIDERS: ATTEND Emergency Medicine
DX: L03.116 Cellulitis of left lower limb (principal); L97.522 Non-pressure chronic ulcer of other part of left foot with fat layer exposed
CPT/HCPCS: 36415; 85027

== ENCOUNTER 2018-04-27 12:31 | Inpatient (IN) ==
[2018-04-27 13:01] VITALS: BMI 22.0
[2018-04-27] MEDS ORDERED: VANCOMYCIN 1 GM in SODIUM CHLORIDE 250 ML IV ONE (13:30)
[2018-04-27] MEDS: SODIUM CHLORIDE 1,000 ML IV SCH (14:02)
[2018-04-27] MEDS: ROCEPHIN 1 GM in SODIUM CHLORIDE 50 ML IV SCH (14:02)
[2018-04-27] MEDS: LOVENOX SUBCUT SCH (14:06)
[2018-04-27] MEDS: LIBRIUM PO SCH ×3 (14:06→20:46)
--- NOTE | 2018-04-27 14:57 | CT ---
Exam: CT of the left foot without intravenous contrast. Comparison: X-ray of the toes performed 04/24/2018. CT left foot performed 03/30/2018. Reason for exam: Great toe ulcer, rule out osteomyelitis. FINDINGS: There is osseous destruction in the right first distal and mid phalanx with multiple fracture fragmen ts spanning the joint space. Soft tissue swelling is seen adjacent to this location with surrounding inflammatory change. No discrete fluid collection is seen. The second, third, fourth and fifth digits appear grossly unremarkable. The metatarsals and tarsal b ones appear grossly unremarkable with mild to moderate degenerative disease. Impression: Osseous destruction of the right first distal and middle phalanx consistent with osteomyelitis and/or , trauma. MRI may be performed for further characterization.
[2018-04-27] MEDS: NEURONTIN PO SCH (20:46)
[2018-04-28] MEDS ORDERED: INSULIN GLARGINE HUM REC ANLOG 10 UNIT SQ SCH (09:00)
[2018-04-28] MEDS ORDERED: [UNRECOGNIZED DRUG - OTHER] SQ SCH (09:00)
[2018-04-28] MEDS ORDERED: NON-FORMULARY MEDICATION (Sitagliptin Phosphate [Januvia] 100 MG) PO SCH (09:00)
[2018-04-28] MEDS: ROCEPHIN 1 GM in SODIUM CHLORIDE 50 ML IV SCH (09:21)
[2018-04-28] MEDS: WELLBUTRIN XL PO SCH (09:22)
[2018-04-28] MEDS: LIBRIUM PO SCH ×3 (09:22→20:02)
[2018-04-28] MEDS: JANUVIA PO SCH (09:22)
[2018-04-28] MEDS: LOVENOX SUBCUT SCH (09:23)
[2018-04-28] MEDS: LANTUS SUBCUT SCH (09:23)
[2018-04-28] MEDS: NEURONTIN PO SCH ×2 (09:25→20:02)
[2018-04-28] MEDS: VANCOMYCIN 500 MG in SODIUM CHLORIDE 100 ML IV SCH ×2 (10:10→20:03)
[2018-04-28] MEDS: HUMULIN R SUBCUT PRN ×2 (17:35→21:06)
[2018-04-28] MEDS: TYLENOL PO PRN (20:02)
[2018-04-28] MEDS: SODIUM CHLORIDE 1,000 ML IV SCH ×2 (21:23)
[2018-04-29] MEDS: ROCEPHIN 1 GM in SODIUM CHLORIDE 50 ML IV SCH (08:10)
[2018-04-29] MEDS: NEURONTIN PO SCH ×2 (08:11→20:18)
[2018-04-29] MEDS: JANUVIA PO SCH (08:11)
[2018-04-29] MEDS: LIBRIUM PO SCH ×3 (08:11→20:18)
[2018-04-29] MEDS: WELLBUTRIN XL PO SCH (08:11)
[2018-04-29] MEDS: LOVENOX SUBCUT SCH (08:11)
[2018-04-29] MEDS: LANTUS SUBCUT SCH (08:18)
[2018-04-29] MEDS: TYLENOL PO PRN (08:23)
[2018-04-29] MEDS: VANCOMYCIN 500 MG in SODIUM CHLORIDE 100 ML IV SCH (08:55)
[2018-04-29] MEDS: SODIUM CHLORIDE 1,000 ML IV SCH ×2 (12:06→17:21)
[2018-04-29] MEDS: HUMULIN R SUBCUT PRN ×3 (12:07→20:18)
[2018-04-29] MEDS: VANCOMYCIN 750 MG in SODIUM CHLORIDE 250 ML IV SCH (20:18)
[2018-04-30] MEDS: HUMULIN R SUBCUT PRN ×2 (05:31→11:10)
[2018-04-30] MEDS: SODIUM CHLORIDE 1,000 ML IV SCH (05:34)
[2018-04-30] MEDS: NEURONTIN PO SCH (09:18)
[2018-04-30] MEDS: LIBRIUM PO SCH ×2 (09:18→09:27)
[2018-04-30] MEDS: ROCEPHIN 1 GM in SODIUM CHLORIDE 50 ML IV SCH (09:19)
[2018-04-30] MEDS: JANUVIA PO SCH (09:19)
[2018-04-30] MEDS: WELLBUTRIN XL PO SCH (09:19)
[2018-04-30] MEDS: LOVENOX SUBCUT SCH (09:19)
[2018-04-30] MEDS: LANTUS SUBCUT SCH (09:20)
--- NOTE | 2018-04-30 09:26 | PN ---
DATE OF SERVICE: 04/28/18 SUBJECTIVE: The patient was admitted with the left toe osteomyelitis. The patient was recently admitted to the hospital for the cellulitis but was noncompliant with the medication and treatment plan. Came back with the swollen foot. CT scan shows the osteomyelitis. He was started on the antibiotics Rocephin and Vancomycin. The patient's sister is in the room, What are the possible outcomes of osteomyelitis, amputation of the toe and amputation of the foot been discussed with the patient and family in detail. REVIEW OF SYSTEMS: CONSTITUTIONAL: No fever, no chills. HEENT: Normal. ENDOCRINE: No weight gain, no weight loss. CVS: No angina symptoms. No CHF symptoms. No palpitations. No atypical chest pain for CAD. No shortness of breath. No PND, no orthopnea. RESPIRATORY: No cough, no hemoptysis. GI: No nausea, no vomiting. No abdominal pain. : No hematuria. No polyuria. MUSCULOSKELETAL: No joint swelling. PSYCHIATRIC: Not anxious. No depression. No suicidal thoughts. No homicidal thoughts. SKIN: Intact. No rash. PHYSICAL EXAMINATION: V/S: Blood pressure 117/74, respiratory rate 20, heart 94 temperature 97.8. HEENT: Normocephalic, atraumatic. Mucosa dry. Pallor positive. No icterus. The patient is legally blind. NECK: Supple. No JVD, no carotid bruit. No lymphadenopathy. LUNGS: Clear to auscultation. No rales or rhonchi. HEART: S1, S2 normal. No S3. No murmur, gallop or regurgitation. ABDOMEN: Soft, nontender. Bowel sounds active. No rigidity. No rebound or guarding. No CVA tenderness. EXTREMITIES: No cyanosis, clubbing or pedal edema. Left foot swelling is present. Left great toe is swollen on the dorsum of the left great toe, 2-3cm ulcer present. Warm to touch, can see some puss. MUSCULOSKELETAL: No joint swelling. NEUROLOGIC: Awake, alert, oriented times three. No focal deficit. LYMPHATIC: No lymph nodes palpable. SKIN: Intact. LABS: WBC 7.32, hgb 10.0, hct 29.9, plt count 198, sodium 137, potassium 4.4, chloride 106, bicarb 24, BUN 22, creatinine 1.51, glucose 298 ASSESSMENT: 1. Left great toe osteomyelitis 2. Noncompliance with medication and treatment 3. Anemia 4. Diabetes, labile 5. Hypertension 6. Dyslipidemia 7. Osteoarthritis 8. Methamphetamine use 9. Ataxia 10.Legally blind PLAN: 1. Continue Rocephin and Vancomycin 2. Keep the foot elevated 3. Accu-checks with coverage. TIME SPENT: More than 35 minutes MTDD
--- NOTE | 2018-04-30 09:38 | PN ---
DATE OF SERVICE: 04/29/18 SUBJECTIVE: Left toe is still swollen, no pain and no drainage at this time. He is being treated for the osteomyelitis. Sugars been under control 131 today. REVIEW OF SYSTEMS: CONSTITUTIONAL: No fever, no chills. HEENT: Normal. ENDOCRINE: No weight gain, no weight loss. CVS: No angina symptoms. No CHF symptoms. No palpitations. No atypical chest pain for CAD. No shortness of breath. No PND, no orthopnea. RESPIRATORY: No cough, no hemoptysis. GI: No nausea, no vomiting. No abdominal pain. : No hematuria. No polyuria. MUSCULOSKELETAL: No joint swelling. PSYCHIATRIC: Not anxious. No depression. No suicidal thoughts. No homicidal thoughts. SKIN: Intact. No rash. PHYSICAL EXAMINATION: V/S: Blood pressure 178/101, respiratory rate 20, heart rate 97.7. HEENT: Normocephalic, atraumatic. Mucosa dry. Pallor positive. NECK: Supple. No JVD, no carotid bruit. No lymphadenopathy. LUNGS: Clear to auscultation. No rales or rhonchi. HEART: S1, S2 normal. No S3. No murmur, gallop or regurgitation. ABDOMEN: Soft, nontender. Bowel sounds active. No rigidity. No rebound or guarding. No CVA tenderness. EXTREMITIES: No cyanosis, clubbing or pedal edema. Left first toe is swollen, warm to touch. Pulses are 1+ in the left dorsalis pedis. No drainage at this time. MUSCULOSKELETAL: No joint swelling. NEUROLOGIC: Awake, alert, oriented times three. No focal deficit. LYMPHATIC: No lymph nodes palpable. SKIN: Intact. LABS: Sodium 137, potassium 4.1, chloride 107, bicarb 25, BUN 16, creatinine 1.14, glucose 131. WBC 3.46, hgb 9.8, hct 29.2, plt count 197. ASSESSMENT: 1. Left big toe osteomyelitis 2. Anemia 3. Noncompliance 4. Diabetes, labile 5. Hypertension 6. Legally blind 7. Ataxia PLAN: 1. Continue Rocephin 1 gram daily 2. Vancomycin 1 gram daily 3. IV fluids 4. Accu-checks with coverage. TIME SPENT: More than 35 minutes MTDD
[2018-04-30] MEDS: VANCOMYCIN 750 MG in SODIUM CHLORIDE 250 ML IV SCH (10:08)
[2018-04-30 10:19] VITALS: BP 165/92; TEMP 97.8
--- NOTE | 2018-04-30 21:03 | PCM.HOSP ---
- Initial Hospital Care [id number] 70 Minutes Bedside ([id number]): 04/27 - Subsequent Care [id number] 35 Minutes per Day ([id number]): 04/28. 04/29 - Hospital Discharge [id number] More than 30 Minutes ([id number]): 04/30
--- NOTE | 2018-05-02 14:45 | DS ---
DATE OF SERVICE: 04/30/18 FINAL DIAGNOSIS: 1. LEFT FIRST TOE OSTEOMYELITIS 2. DIABETES MELLITUS, UNCONTROLLED 3. ANEMIA, FAILED TREATMENT OUTPATIENT 4. ATAXIA 5. LEGALLY BLIND; BLINDNESS LEFT EYE 6. COPD 7. SUBSTANCE USE 8. OSTEOARTHRITIS 9. DJD SPINE DISCHARGE INSTRUCTIONS: 1. Transfer the patient to [facility] for followup with clinical services director and higher care. 2. Accu-Checks with coverage. MEDICATIONS AT DISCHARGE: Rocephin Vancomycin Basaglar Januvia Lovenox Librium NEW PRESCRIPTIONS: None DIET INSTRUCTIONS: Diabetic diet ACTIVITY: Bed rest DISEASE SPECIFIC EDUCATION: Osteomyelitis, risk of amputation, antibiotic use and diarrhea discussed. HOSPITAL COURSE: This is a 52-year-old male who initially was admitted to the hospital on March 30 for the left toe ulcer and the ulcer did grow Morganella Morganii and was started on IV antibiotics. The patient refused to stay at that time in the hospital and after three days he reminded us that he had to go home. At that time the patient was discharged home as the patient is a regular clinic patient. He went home, stopped taking the medication, came back for followup on 04/24 to the clinic. The left toe is swollen, red and tender. ESR and x-ray was done which showed osteomyelitis. At that time we called the patient for admission. Finally he showed up on 04/27 for admission. He was started on Rocephin and Vancomycin. CT of the foot was done which showed definitive diagnosis of osteomyelitis. The patient is always very noncompliant and ever since he was admitted just wanted to go home. He has a history of polysubstance abuse, Amphetamine and Methamphetamine. The patient was explained about the risk of amputation and we did talk to [facility] doctors who were courteous enough to accept the patient and is being transferred for possible treatment of left first toe osteomyelitis. The patient was discussed about possibility of amputation of the toe vs foot depending on the studies and treatment there. TIME SPENT: MORE THAN 65 MINUTES MTDD
== END 2018-04-30 12:25 | disposition short-term general hospital (02) | DRG 594 ==
LOC: MEDSURG B 12:31
PROVIDERS: ADMIT Emergency Medicine; ATTEND Emergency Medicine
DX: L97.529 Non-pressure chronic ulcer of other part of left foot with unspecified severity (principal); E11.621 Type 2 diabetes mellitus with foot ulcer; D64.9 Anemia, unspecified; R27.0 Ataxia, unspecified; I10 Essential (primary) hypertension; M19.90 Unspecified osteoarthritis, unspecified site; M47.9 Spondylosis, unspecified; J44.9 Chronic obstructive pulmonary disease, unspecified; H54.7 Unspecified visual loss; F19.90 Other psychoactive substance use, unspecified, uncomplicated; Z91.19 Patient's noncompliance with other medical treatment and regimen
CPT/HCPCS: 36415; 80053; 82962; 85025; 85651; 87081

== ENCOUNTER 2018-04-30 12:30 | Outpatient (CLI) | END 2018-04-30 12:54 | disposition short-term general hospital (02) | LOC: AMBL 12:30 | PROVIDERS: ATTEND Emergency Medicine | DX: M86.9 Osteomyelitis, unspecified (principal) ==

== ENCOUNTER 2018-07-19 18:57 | Outpatient (CLI) | END 2018-07-19 18:58 | disposition home or self-care (01) | LOC: LAB 18:57 | PROVIDERS: ATTEND Nurse Practitioner Family | DX: I10 Essential (primary) hypertension (principal); E11.9 Type 2 diabetes mellitus without complications; Z12.5 Encounter for screening for malignant neoplasm of prostate | CPT/HCPCS: 36415; 80053; 80061; 83036; 84443; 85025 ==

== ENCOUNTER 2018-07-23 21:26 | Emergency (ER) ==
[2018-07-23 21:47] VITALS: BP 138/84; TEMP 97.4; BMI 22.4
[2018-07-23] MEDS ORDERED: VANCOMYCIN 1 GM in SODIUM CHLORIDE 250 ML IV STA (22:08)
--- NOTE | 2018-07-23 23:28 | CT ---
Exam: CT left foot without contrast History: Gangrene of the second digit Technique: [address] of the left foot FINDINGS: Peripheral edema and swelling of the foot and ankle. Amputation of the first digit at the metatarsophalangeal joint. No acute bony erosive changes are seen. No soft tissue gas or obvious f luid collection. Impression: 1. Peripheral edema of the foot. No soft tissue gas is seen. 2. No acute bony erosions
--- NOTE | 2018-07-23 23:35 | DI ---
Exam: Chest one-view History: Gangrene of the foot FINDINGS: Normal cardiomediastinal contours appear normal pulmonary vasculature. No infiltrative op acities. Question lucent expansion of the posterior ninth rib on the left. No acute chest wall abno rmalities otherwise. Impression: No acute cardiopulmonary disease Question lucent expansion of the posterior ninth rib on the left. Correlate with rib radiograph.
--- NOTE | 2018-07-24 00:11 | ED.PDOC ---
General ED Provider: Dr. KEERTHI ROMAN-ER Chief Complaint: Non-specific Complaint Stated Complaint: my toe is swollen Time Seen by Physician: 21:30 Mode of Arrival: Wheelchair Information Source: Patient Exam Limitations: No limitations Primary Care Provider: LEFTY [facility] Nursing and Triage Documentation Reviewed and Agree: Yes Does patient meet sepsis criteria?: No System Inflammatory Response Syndrome: Not Applicable Sepsis Protocol: For patient's 13 years and over: Temp is 96.8 and below OR 101 and greater Pulse >90 BPM Resp >20/minute Acutely Altered Mental Status Are patient's symptoms suggestive of a new infection, such as: -Pneumonia -Skin, Soft Tissue -Endocarditis -UTI -Bone, Joint Infection -Implantable Device -Acute Abdominal Infection -Wound Infection -Meningitis -Blood Stream Catheter Infection -Unknown Skin Complaint Exam - Skin/Soft Tissue Complaint/Exam Onset/Duration: unknown Symptoms Are: Still present Timing: Constant Initial Severity: Mild Current Severity: Mild Location: left 2nd toe Character: Reports: Redness, Swelling, Raised Aggravating: Reports: None Alleviating: Reports: None Associated Signs and Symptoms: Reports: Drainage, Tenderness Related Surgical History: Reports: None Recent Exposure to Others w/Similar Symptoms: No Skin Findings: Present: Erythema, Induration, Dry ulceration Joint Tenderness Present: No Differential Diagnoses: Cellulitis, Infection Review of Systems - Review Of Systems Constitutional: Reports: No symptoms Eyes: Reports: No symptoms Ears, Nose, Mouth, Throat: Reports: No symptoms Respiratory: Reports: No symptoms Cardiac: Reports: No symptoms GI: Reports: No symptoms : Reports: No symptoms Musculoskeletal: Reports: No symptoms Skin: Reports: Rash Neurological: Reports: No symptoms Endocrine: Reports: No symptoms Hematologic/Lymphatic: Reports: No symptoms All Other Systems: Reviewed and Negative Past Medical History - Past Medical History Previously Healthy: Yes Endocrine: Reports: DM 2 Cardiovascular: Reports: None Respiratory: Reports: None Hematological: Reports: None Gastrointestinal: Reports: None Genitourinary: Reports: None Neuro/Psych: Reports: Depression Musculoskeletal: Reports: Arthritis Cancer: Reports: None - Surgical History General Surgical History: Reports: Unknown - Family History Family History: Reports: Diabetes - Social History Smoking Status: Current every day smoker, Heavy tobacco smoker Hx Substance Use: No Alcohol Screening: Occasionally - Immunizations Tetanus Shot up to Date: No (unsure when) Physical Exam - Physical Exam Appearance: Well-appearing, No pain distress, Well-nourished Eyes: PRADEEP ENT: Ears normal, Nose normal, Oropharynx normal Neck: Supple Respiratory: Airway patent, Breath sounds clear, Breath sounds equal, Respirations nonlabored Cardiovascular: RRR, Pulses normal, No rub, No murmur GI/: Soft, Nontender, No masses, Bowel sounds normal, No Organomegaly Musculoskeletal: Normal strength, ROM intact, No edema, No calf tenderness Skin: Warm Neurological: Sensation intact, Motor intact, Reflexes intact, Cranial nerves intact, Alert, Oriented Psychiatric: Affect appropriate, Mood appropriate Interpretation - Radiology Interpretation Radiology Interpretation By: Radiologist Exam Interpreted: CT Scan - Test Kitchen Home Economist Ectopy: PACs - EKG Interpretation Time of EKG #1: 00:11 Rate: Normal Rhythm: Sinus Ectopy: None [place]: NL ST Segment: Normal Interpretation: nsr Critical Care Note - Critical Care Note Total Time (mins): 0 Course - Course Hematology/Chemistry: 07/23/18 22:44 07/23/18 22:44 Orders, Labs, Meds: Lab Review 07/23/18 07/23/18 07/23/18 22:05 22:25 22:25 WBC RBC Hgb Hct MCV MCH MCHC RDW Coeff of Joe Plt Count Immature Gran % (Auto) Neut % (Auto) Lymph % (Auto) Mathews % (Auto) Eos % (Auto) Baso % (Auto) Immature Gran # (Auto) Neut # (Auto) Lymph # (Auto) Mathews # (Auto) Eos # (Auto) Baso # (Auto) Puncture Site Rbrach O2 Saturation 99.0 ABG pH 7.445 ABG pCO2 35.8 ABG pO2 120.0 H ABG HCO3 24.6 ABG Total CO2 26 ABG Base Excess 1 Anshu Test + FiO2 % 21.0 Sodium Potassium Chloride Carbon Dioxide Anion Gap BUN Creatinine Estimated GFR (MDRD) BUN/Creatinine Ratio Glucose Calcium Total Bilirubin AST ALT Alkaline Phosphatase NT-Pro-B Natriuret Pep Total Protein Albumin Globulin Albumin/Globulin Ratio Urine Color Yellow Urine Clarity Clear Urine pH 5.5 Ur Specific [place] 1.025 Urine Protein 3+ Urine Glucose (UA) 2+ Urine Ketones Negative Urine Blood 2+ Urine Nitrite Negative Urine Bilirubin Negative Urine Urobilinogen 0.2 Ur Leukocyte Esterase Negative Urine Microscopic RBC 5-10 Ur Squamous Epith Cells 0-2 Fine Granular Casts 0-2 Urine Opiates Screen Negative Ur Oxycodone Screen Negative Urine Methadone Screen Negative Ur Propoxyphene Screen Negative Ur Barbiturates Screen Negative U Tricyclic Antidepress Negative Ur Phencyclidine Scrn Negative Ur Amphetamine Screen Positive U Methamphetamines Scrn Positive U Benzodiazepines Scrn Negative Urine Cocaine Screen Negative U Cannabinoids Screen Positive 07/23/18 07/23/18 22:44 22:44 WBC 6.42 RBC 3.62 L Hgb 10.5 L Hct 30.4 L MCV 84.0 MCH 29.0 MCHC 34.5 RDW Coeff of Joe 13.2 Plt Count 279 Immature Gran % (Auto) 0.3 Neut % (Auto) 63.6 Lymph % (Auto) 25.4 Mathews % (Auto) 5.9 Eos % (Auto) 4.2 Baso % (Auto) 0.6 Immature Gran # (Auto) 0.0 Neut # (Auto) 4.1 Lymph # (Auto) 1.6 Mathews # (Auto) 0.4 Eos # (Auto) 0.3 Baso # (Auto) 0.0 Puncture Site O2 Saturation ABG pH ABG pCO2 ABG pO2 ABG HCO3 ABG Total CO2 ABG Base Excess Anshu Test FiO2 % Sodium 138.5 Potassium 4.33 Chloride 103.2 Carbon Dioxide 29.3 Anion Gap 10.33 BUN 22.1 H Creatinine 1.01 Estimated GFR (MDRD) 78.00 BUN/Creatinine Ratio 21.88 Glucose 323.7 H Calcium 8.41 Total Bilirubin 0.26 AST 24.8 ALT 15.5 Alkaline Phosphatase 115.5 NT-Pro-B Natriuret Pep 300.000 H Total Protein 6.79 Albumin 3.78 Globulin 3.01 Albumin/Globulin Ratio 1.25 Urine Color Urine Clarity Urine pH Ur Specific [place] Urine Protein Urine Glucose (UA) Urine Ketones Urine Blood Urine Nitrite Urine Bilirubin Urine Urobilinogen Ur Leukocyte Esterase Urine Microscopic RBC Ur Squamous Epith Cells Fine Granular Casts Urine Opiates Screen Ur Oxycodone Screen Urine Methadone Screen Ur Propoxyphene Screen Ur Barbiturates Screen U Tricyclic Antidepress Ur Phencyclidine Scrn Ur Amphetamine Screen U Methamphetamines Scrn U Benzodiazepines Scrn Urine Cocaine Screen U Cannabinoids Screen Orders Category Date Time Status ABG DRAW REQUEST Stat CARDIO 07/23/18 22:05 Completed EKG-(ED ONLY) Stat CARDIO 07/23/18 22:04 Completed IV [ED IV/MEDIPORT/POWERPORT] .ONCE EMERGENCY 07/23/18 22:05 Active ARTERIAL BLOOD GAS [ABG] Stat LAB 07/23/18 22:05 Completed BLOOD CULTURE (ED ONLY) Stat LAB 07/23/18 22:44 Received CBC W/ AUTO DIFF Stat LAB 07/23/18 22:44 Completed COMPREHENSIVE METABOLIC PANEL Stat LAB 07/23/18 22:44 Completed PRO-BNP [NT-PROBNP] Stat LAB 07/23/18 22:44 Completed URINALYSIS C & S IF INDICATED Stat LAB 07/23/18 22:25 Completed URINE DRUG SCREEN (RAPID FOR ED) [DRUG SCREEN, URINE, LAB 07/23/18 22:25 Completed RAPID] Stat 0.9 % Sodium Chloride [Saline Flush] MEDS 07/23/18 22:05 Ordered 1 syr IVF PRN PRN Vancomycin HCl [Vancomycin] 1 gm MEDS 07/23/18 22:08 Discontinued 0.9 % Sodium Chloride [Sodium Chloride] [address] FOOT LEFT WITHOUT CONTRAST Stat RADS 07/23/18 22:07 Completed CXR [CHEST, 1V AP ONLY] Stat RADS 07/23/18 22:09 Completed Medications Generic Name Dose Route Start Last Admin Trade Name Freq PRN Reason Stop Dose Admin Sodium Chloride 1 syr 07/23/18 22:05 Saline Flush IVF PRN PRN To flush IV Discontinued Medications Generic Name Dose Route Start Last Admin Trade Name Freq PRN Reason Stop Dose Admin Vancomycin HCl 1 gm/ Sodium 250 mls @ 250 mls/hr 07/23/18 22:08 07/23/18 23: 01 Chloride IV 07/23/18 23:07 250 mls/hr ONCE STA Administration Vital Signs: Temp Pulse Resp BP Pulse Ox 07/23/18 21:29 97.4 F L 82 20 138/84 98 Departure - Departure Time of Disposition: 00:11 Disposition: HOME SELF-CARE Discharge Problem: Wound, open, toe Qualifiers: Encounter type: initial encounter Qualified Code(s): S91.109A - Unspecified open wound of unspecified toe(s) without damage to nail, initial encounter Condition: Stable Pt referred to PMD for follow-up: No IPMP verified?: No Allergies/Adverse Reactions: Allergies Penicillins Adverse Reaction (Verified 02/14/18 13:50) Home Medications: Ambulatory Orders Brimonidine Tartrate/Timolol [Combigan 0.2%-0.5% Eye Drops] 1 mg GT DAILY Bupropion HCl [Bupropion Xl] 150 mg PO DAILY 07/23/18 Linagliptin [Tradjenta] 5 mg PO DAILY 07/23/18 Lisinopril 20 mg PO DAILY 07/23/18 Transfer Form Completed: Yes Disposition Discussed With: Patient
== END 2018-07-24 01:00 | disposition short-term general hospital (02) ==
LOC: ED 21:26
DX: S91.109A Unspecified open wound of unspecified toe(s) without damage to nail, initial encounter (principal); E11.9 Type 2 diabetes mellitus without complications; F17.210 Nicotine dependence, cigarettes, uncomplicated
CPT/HCPCS: 36415; 80053; 80306; 81001; 82803; 83880; 85025; 87040; 93005; 93010; 96365; 99285

== ENCOUNTER 2018-07-24 00:57 | Outpatient (CLI) ==
[2018-07-23 21:47] VITALS: BMI 22.4
== END 2018-07-24 01:20 | disposition short-term general hospital (02) ==
LOC: AMBL 00:57
PROVIDERS: ATTEND Family Medicine
DX: L03.116 Cellulitis of left lower limb (principal); M79.89 Other specified soft tissue disorders; L98.9 Disorder of the skin and subcutaneous tissue, unspecified

== ENCOUNTER 2018-10-22 14:34 | Outpatient (CLI) | END 2018-10-22 14:35 | disposition home or self-care (01) | LOC: LAB 14:34 → RHC-LAB 14:35 | PROVIDERS: ATTEND Nurse Practitioner Family | DX: E11.9 Type 2 diabetes mellitus without complications (principal) | CPT/HCPCS: 36415; 83037 ==

== ENCOUNTER 2018-12-18 14:48 | Inpatient (IN) | payer OTHER ==
--- NOTE | 2018-12-18 16:06 | ED.PDOC ---
General ED Provider: Dr. KEERTHI QUINTERO Chief Complaint: Diabetes Stated Complaint: Has stopped taking his meds due to his feeling of not having any one to care for him. Long standing hx diabetes and is legally blind. Patient is tearful. Apparently patient was with his son in [place] and then with a daughter in [place] who has advised she will no longer assist with his care. Unknow POA or DNR status Time Seen by Physician: 15:15 Mode of Arrival: Wheelchair Information Source: Patient, Family Exam Limitations: Clinical condition Primary Care Provider: LEFTY RAI Nursing and Triage Documentation Reviewed and Agree: Yes Does patient meet sepsis criteria?: No System Inflammatory Response Syndrome: Not Applicable Sepsis Protocol: For patient's 13 years and over: Temp is 96.8 and below OR 101 and greater Pulse >90 BPM Resp >20/minute Acutely Altered Mental Status Are patient's symptoms suggestive of a new infection, such as: -Pneumonia -Skin, Soft Tissue -Endocarditis -UTI -Bone, Joint Infection -Implantable Device -Acute Abdominal Infection -Wound Infection -Meningitis -Blood Stream Catheter Infection -Unknown Miscellaneous Complaint Exam - Complex/Multi-System Complaint/Exam Symptoms Are: Still present Episodes Lasting: Hours Initial Severity: Moderate Current Severity: Moderate Associated Signs and Symptoms: Reports: Confusion, Weakness, Decreased oral intake Related History: Recent Illness Recent Echo/LV Function: No Respiratory Distress: None JVD Present: No Tachypnea Present: No Stridor Present: No Abdominal Findings: Present: Normal findings (but slightly ) Review of Systems - Review Of Systems Constitutional: Reports: Fever, Weakness Eyes: Reports: Blindness Ears, Nose, Mouth, Throat: Reports: No symptoms Respiratory: Reports: No symptoms Cardiac: Reports: No symptoms GI: Reports: Abdominal pain, Nausea, Poor fluid intake : Reports: No symptoms Musculoskeletal: Reports: No symptoms Skin: Reports: No symptoms Neurological: Reports: Depressed, Emotional problems, Cognitive dysfunction Endocrine: Reports: Increased hunger, Increased thirst, Unexplained weight loss Hematologic/Lymphatic: Reports: No symptoms All Other Systems: Reviewed and Negative Past Medical History - Past Medical History Previously Healthy: Yes Endocrine: Reports: DM 2 Cardiovascular: Reports: None Respiratory: Reports: None Hematological: Reports: None Gastrointestinal: Reports: None Genitourinary: Reports: None Neuro/Psych: Reports: Depression Musculoskeletal: Reports: Arthritis Cancer: Reports: None - Surgical History General Surgical History: Reports: Unknown - Family History Family History: Reports: Diabetes - Social History Smoking Status: Current every day smoker, Heavy tobacco smoker Hx Substance Use: No Alcohol Screening: Occasionally Physical Exam - Physical Exam Appearance: Ill-appearing Ill-appearing: Moderate Pain Distress: None Eyes: PRADEEP, EOMI, Conjunctiva clear ENT: Ears normal Neck: Supple Respiratory: Airway patent Cardiovascular: RRR, Pulses normal, No rub, No murmur GI/: Soft, No masses, Bowel sounds normal, No Organomegaly, Tender Musculoskeletal: Normal strength, ROM intact, No edema, No calf tenderness Skin: Warm, Dry, Normal color Neurological: Sensation intact, Motor intact, Reflexes intact, Cranial nerves intact, Alert, Oriented Psychiatric: Anxious, Depressed Physician Notification - Case Discussed Physician Notified: Dr Santos accepted Time of Notification: 19:00 Critical Care Note - Critical Care Note Total Time (mins): 60 Course - Course Hematology/Chemistry: 12/18/18 15:20 12/18/18 15:20 Orders, Labs, Meds: Lab Review 12/18/18 12/18/18 12/18/18 15:20 15:20 18:45 WBC 7.68 RBC 3.10 L Hgb 8.8 L Hct 26.3 L MCV 84.8 MCH 28.4 MCHC 33.5 RDW Coeff of Joe 13.0 Plt Count 230 Immature Gran % (Auto) 0.9 Neut % (Auto) 77.0 Lymph % (Auto) 11.1 Brantley % (Auto) 8.1 Eos % (Auto) 2.6 Baso % (Auto) 0.3 Immature Gran # (Auto) 0.1 Neut # (Auto) 5.9 Lymph # (Auto) 0.9 Brantley # (Auto) 0.6 Eos # (Auto) 0.2 Baso # (Auto) 0.0 PT 9.1 L INR 0.91 Sodium 135.3 Potassium 4.04 Chloride 103.9 Carbon Dioxide 27.6 Anion Gap 7.84 BUN 28.8 H Creatinine 1.78 H Estimated GFR (MDRD) 40.00 BUN/Creatinine Ratio 16.17 Glucose 292.6 H Lactic Acid Calcium 7.95 L Magnesium 2.22 Total Bilirubin 0.34 AST 18.1 ALT 10.9 Alkaline Phosphatase 83.3 NT-Pro-B Natriuret Pep Total Protein 5.56 L Albumin 2.68 L Globulin 2.88 Albumin/Globulin Ratio 0.93 12/18/18 12/18/18 18:45 18:45 WBC RBC Hgb Hct MCV MCH MCHC RDW Coeff of Joe Plt Count Immature Gran % (Auto) Neut % (Auto) Lymph % (Auto) Brantley % (Auto) Eos % (Auto) Baso % (Auto) Immature Gran # (Auto) Neut # (Auto) Lymph # (Auto) Brantley # (Auto) Eos # (Auto) Baso # (Auto) PT INR Sodium Potassium Chloride Carbon Dioxide Anion Gap BUN Creatinine Estimated GFR (MDRD) BUN/Creatinine Ratio Glucose Lactic Acid 0.55 L Calcium Magnesium Total Bilirubin AST ALT Alkaline Phosphatase NT-Pro-B Natriuret Pep 07448.000 H Total Protein Albumin Globulin Albumin/Globulin Ratio Orders Category Date Time Status EKG-(ED ONLY) Stat CARDIO 12/18/18 16:04 Completed BLOOD GLUCOSE MONITORING 0630,1100,1700,2100 CARE 12/18/18 18:38 Active BLOOD GLUCOSE MONITORING Q1HR CARE 12/18/18 18:38 Active IV [ED IV/MEDIPORT/POWERPORT] .ONCE EMERGENCY 12/18/18 16:03 Active BLOOD CULTURE Stat LAB 12/18/18 19:14 Received CBC W/ AUTO DIFF Stat LAB 12/18/18 15:20 Completed CMP [COMPREHENSIVE METABOLIC PANEL] Stat LAB 12/18/18 15:20 Completed LACTIC ACID Stat LAB 12/18/18 18:45 Completed MAGNESIUM Stat LAB 12/18/18 15:20 Completed NT-PROBNP Stat LAB 12/18/18 18:45 Completed PT WITH INR Stat LAB 12/18/18 18:45 Completed SPUTUM CULTURE Stat LAB 12/18/18 18:34 Uncollected UA [URINALYSIS C & S IF INDICATED] Stat LAB 12/18/18 16:03 Uncollected URINE DRUG SCREEN (RAPID FOR ED) [DRUG SCREEN, URINE, LAB 12/18/18 16:04 Uncollected RAPID] Stat 0.9 % Sodium Chloride [Saline Flush] MEDS 12/18/18 16:02 Active 1 syr IVF PRN PRN Insulin Lispro [Humalog] MEDS 12/18/18 18:37 Discontinued 10 unit SUBCUT ONCE STA Insulin Regular, Human [Humulin R] MEDS 12/18/18 18:50 Discontinued 10 unit SUBCUT ONCE STA CHEST, 1V AP ONLY Stat RADS 12/18/18 16:[address] ABDOMEN/PELVIS WO CONTRAST Stat RADS 12/18/18 18:42 Completed Medications Generic Name Dose Route Start Last Admin Trade Name Freq PRN Reason Stop Dose Admin Sodium Chloride 1 syr 12/18/18 16:02 Saline Flush IVF PRN PRN To flush IV Discontinued Medications Generic Name Dose Route Start Last Admin Trade Name Freq PRN Reason Stop Dose Admin Insulin Human Lispro 10 unit 12/18/18 18:37 12/18/18 18:49 Humalog SUBCUT 12/18/18 18:38 Not Given ONCE STA Insulin Human Regular 10 unit 12/18/18 18:50 12/18/18 19:02 Humulin R SUBCUT 12/18/18 18:51 10 unit ONCE STA Administration Vital Signs: Temp Pulse Resp BP Pulse Ox 12/18/18 17:34 94 H 176/96 H 12/18/18 17:32 94 H 173/95 H 12/18/18 17:06 102 H 165/97 H 12/18/18 14:54 98.7 F 83 20 98/62 93 L Departure - Departure Time of Disposition: 19:50 Disposition: ADMITTED INPATIENT Discharge Problem: Pneumonia, Uncontrolled diabetes mellitus, Chronic kidney disease Condition: Poor Pt referred to PMD for follow-up: No IPMP verified?: No Allergies/Adverse Reactions: Allergies Penicillins Adverse Reaction (Verified 12/18/18 14:54) Home Medications: Ambulatory Orders Sitagliptin Phosphate [Januvia] 100 mg PO DAILY 12/18/18 Disposition Discussed With: Patient, Family
--- NOTE | 2018-12-18 16:54 | DI ---
EXAM: CHEST FRONTAL VIEW HISTORY: Congestion. COMPARISON: 10/02/2018 FINDINGS: Heart size within normal limits and stable. Left lung is clear. Right lung has patchy de nsities throughout which are relatively mild although new since the previous exam. There is a tiny r ight pleural effusion suggested. No visible pneumothorax or definite vascular congestion. IMPRESSION: 1. Patchy densities in the right lung with a small pleural effusion. Consider pneumonia. Follow-up is recommended.
[2018-12-18] MEDS ORDERED: HUMALOG SUBCUT STA (18:37)
[2018-12-18] MEDS ORDERED: HUMULIN R SUBCUT STA (18:50)
--- NOTE | 2018-12-18 19:45 | CT ---
Exam: CT scan of the abdomen pelvis without contrast. Date: 12/18/2018. Comparison: 02/14/2018. HISTORY: Abdominal pain and cramping. TECHNIQUE: Helical scan of the abdomen pelvis was performed without contrast. FINDINGS: There is moderate right and smaller left layering pleural effusions with scattered areas o f ground-glass attenuation and subsegmental consolidation involving the right middle and lower lobes. Degenerative changes are seen in the lower lumbar spine. There is lumbarization of left L5-S1. Th e bony pelvis is otherwise within normal limits. The spleen and liver have a uniform attenuation. The gallbladder, stomach, pancreas and right adrena l gland are normal. There is a 2.4 x 1.6 cm left adrenal nodule that measures -14 Hounsfield units. The kidneys have a normal morphology. No calculi or hydronephrosis is seen. No retroperitoneal radha nopathy is present. Aorta has peripheral calcification and does not exceed 3 cm. The small bowel an d appendix are normal. The colon and pelvic sidewall are normal. There is a small amount of free fl uid in the pelvis. The bladder, prostate, rectum and inguinal regions are normal. Impression: Moderate right and smaller left pleural effusions with scattered areas of ground-glass a ttenuation and subsegmental atelectasis or consolidation involving the right middle and lower lobes. Recommend correlation to exclude pneumonia. There is a small amount of free fluid in the pelvis which is a nonspecific finding. 2.4 x 1.6 cm lipid rich left adrenal adenoma. ASVD.
[2018-12-18] MEDS ORDERED: TYLENOL PO PRN (20:00)
[2018-12-18] MEDS ORDERED: DUONEB NEB PRN (20:00)
[2018-12-18 23:48] VITALS: BMI 24.2
--- NOTE | 2018-12-19 01:33 | DI ---
EXAM: Three-view left foot. HISTORY: Swelling of feet. FINDINGS: There are amputation defects of the left first and second digits. There is a 1.1 cm linear foreign body in the soft tissues of the left third digit. There is soft tissue swelling in the fore foot and midfoot. Impression: Amputation defects of the left first and second digits. 1.1 cm linear foreign body in the soft tissues of the left third digit. Soft tissue swelling in the forefoot and midfoot.
--- NOTE | 2018-12-19 01:39 | DI ---
EXAM: Three-view right foot. HISTORY: Swelling and feet. FINDINGS: Comparison made with three-view right foot of 09/22/2009. There is a new small erosion marc ng the distal medial margin of the proximal phalanx of the right first digit. Redemonstrated are mul tiple punctate foreign bodies in the soft tissues of the right second digit. The joint spaces are ma intained. There is soft tissue swelling in the first digit. Impression: Small erosion in the proximal phalanx of the right first digit as described. The differe ntial diagnosis includes infection and gout. Chronic punctate foreign bodies in the soft tissues of the right second digit. Soft tissue swelling as described.
[2018-12-19] MEDS ORDERED: ROCEPHIN ONE (01:45)
[2018-12-19] MEDS: ROCEPHIN 1 GM in SODIUM CHLORIDE 50 ML IV SCH ×3 (01:50→09:16)
[2018-12-19] MEDS: ZITHROMAX PO SCH ×2 (01:50→09:16)
[2018-12-19] MEDS: LOVENOX SUBCUT SCH ×2 (01:51→09:16)
[2018-12-19] MEDS: LANTUS SUBCUT SCH ×2 (01:53→20:36)
--- NOTE | 2018-12-19 10:33 | PN ---
DATE OF SERVICE: 12/19/18 SUBJECTIVE: It is 12:05 a.m. I saw this patient about 10 o'clock on the evening of . The patient was brought by relatives to the emergency room. This patient is diabetic and blind. He had been diabetic, according to him, for 20 years. He tells me that his mind is okay except that he could not see. He had been blind due to the diabetes. I asked him who is taking care of him at home and he said the brothers and sisters. He had not had any insulin in the last six days and had not eaten in the last day and one-half. The patient is complaining of generalized weakness. During the course of my conversation with him he kept repeating that his head is fine and if he was only able to see then he would be able to do things for himself. Severe anemia 8.8 gm hemoglobin and hematocrit 26.3. Coagulation profile normal. BUN 28.8, creatinine 1.78, EGFR 40, blood sugar 292.6. Lactic acid 0.55 , NT-Pro-BNP 30,200. Electrolytes are normal. c02 normal. We will get a hemoglobin A1C plus procalcitonin as well as arterial blood gases, baseline. Will obtain GAD65 autoantibody plus C-peptide and possibly insulin level. HARDIKD
--- NOTE | 2018-12-19 14:43 | RS.PTINEVL ---
Subjective - Patient information Date of Evaluation: 12/19/18 Date of Arrival on Unit: 12/18/18 Admitted From:: Home (lives with sister occasionally) Diagnosis: pneumonia, uncontrolled DM, chronic kidney disease Usual Living Arrangement: lives with family sometimes sister, dtr etc. Home Environment: House, Stairs (few), No rail Medical History: Hypertension, CVA/TIA, COPD, Diabetes, Arthritis Medical History Comments:: legally blind LATEX ALLERGY?: No Surgical History Comments:: s/p L great toe amputation Medications: see chart Subjective Information/ Patient Comments:: pt states that "I can't do this long , my daughter is coming back and I want to talk to her by myself." Explained to pt if dtr arrived we would step out and allow them privacy. Dtr did not return while PT in room. - Level of function Prior to this admission, the patient could do the following:: Partially Dependent Ambulation Abilities prior to this admission: pt needed assist with all ADL's and ambulation but unsure if pt had this assist available to him. Current Level of Function: Partially Dependent Current Equipment Used at Home: walker which has no rubber tips, will need new tips or new walker at dc Interventions - Objective Patient Orientation: Person, Place Current Interventions: IV's Observation: pt with non pitting edema BLE. pt with significant forward head posture, rounded shlds and increased thoracic kyphosis Range of Motion - ROM Right Upper Extremity AROM: WFL's Left Upper Extremity AROM: WFL's Right Lower Extremity AROM: WFL's Left Lower Extremity AROM: WFL's Muscle Strength - Muscle Strength Right Upper Extremity Strength: Mild Weakness (grossly 4/5) Left Upper Extremity Strength: Mild Weakness (grossly 4/5) Right Lower Extremity Strength: Mild Weakness (hip flex 4/5, knee flex/ext 4/5, ankle DF/PF 4-/5) Left Lower Extremity Strength: Mild Weakness (hip flex 4/5, knee flex/ext 4/5, ankle DF/PF 4-/5) Sensation - Sensation Right Upper Extremity Sensation: Intact/Normal Left Upper Extremity Sensation: Intact/Normal Right Lower Extremity Sensation: Impaired (n/t in foot and lower leg) Left Lower Extremity Sensation: Impaired (n/t in foot and lower leg) Palpation Palpation Findings: None/Normal Balance - Sitting Balance and Reactions Static Sitting Balance: Fair Dynamic Sitting Balance: Poor Sitting Equilibrium Reactions: Delayed Left, Delayed Right Sitting Protective Reactions: Delayed Left, Delayed Right - Standing Balance and Reactions Static Standing Balance: Poor Dynamic Standing Balance: Poor Standing Equilibrium Reactions: Delayed Left, Delayed Right Standing Protective Reactions: Delayed Left, Delayed Right - Comments Balance Assessment Comments: balance is limited due to decreased sensation B feet, decreased proprioception, as well as decreased vision. Functional Mobility - Transfers Sit to Stand: Min Assist, 2 person assist Stand to Sit: Min Assist, 1 person assist - Safety Awareness Safety Awareness: Poor SULMA INDEX SCORE: n/a Ambulation - Ambulation Assistive Device Used: Rolling Walker Orthotic/Prosthetic Device: No Distance: 70ft Assistance needed with Ambulation: Min Assist, 2 person assist Gait Deviations: Forward posture, Short stride, Deviates from path Ambulation Comments: pt limited due decreased vision. Factors Affecting Ambulation: Decreased Balance, Weakness, Decreased Coordination, Decreased Safety, Limited Endurance, Limited Sensation Treatment time - Time with patient Length of Evaluation: 24 Total treatment time: 29 Patient Education - Education Patient Education: Activity Modification, Education of Plan of Care Teaching Recipient: Patient Teaching Methods: Discussion Comments: discussion regarding POC as well as safety with transfers and gait. Assessment - Assessment Problem List:: Decreased level of function, Requires training/education, Decreased safety/Risk of falls, Weakness Rehab Potential: Fair Further Therapy Indicated?: Yes Evaluation Complexity: HISTORY: Medium (DM, HTN, CVA, blindness, COPD), EXAM OF BODY SYSTEMS: Medium (strength, balance, gait, transfers,), CLINICAL PRESENTATION: Medium, CLINICAL DECISION MAKING: Medium Short Term Goals GOAL #1: pt independent with rolling and bridging in bed Goal to be met by: 12/21/18 GOAL #2: Transfer sup to/from sit CGA Goal to be met by: 12/21/18 GOAL #3: Sit to/from stand min to CGA Goal to be met by: 12/21/18 GOAL #4: pt amb with rwx 100ft with min x 1 with improved posture Goal to be met by: 12/21/18 Welding Foreman Goals GOAL #1: pt transfer sup to/from sit to/from stand CGA Goal to be met by: 12/23/18 GOAL #2: pt amb with AAD functional distances with CGA to SBA d/t decreased vision Goal to be met by: 12/23/18 GOAL #3: Improve dyn stand balance fair Goal to be met by: 12/23/18 Plan Plan of Care: Therapeutic EX, Therapeutic Activity Other:: gait training Frequency of Treatment: 1-2 X day, as tolerated Duration of Treatment: 4-5 days Anticipated Discharge Destination: possible retirement placement for rehab Treatment Diagnosis (ICD 10 Codes): R26.2 difficulty walking. R26.81 balance impaired. M62.81 weakness Has the Physician been added for Co-signature?: Yes
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
[2018-12-20] MEDS: ROCEPHIN 1 GM in SODIUM CHLORIDE 50 ML IV SCH (08:30)
[2018-12-20] MEDS: LOVENOX SUBCUT SCH (08:30)
[2018-12-20] MEDS ORDERED: ZITHROMAX PO SCH (09:00)
[2018-12-20] MEDS: HUMULIN R SUBCUT PRN (12:31)
[2018-12-20] MEDS: LANTUS SUBCUT SCH (20:42)
[2018-12-21] MEDS: HUMULIN R SUBCUT PRN ×3 (06:51→17:33)
[2018-12-21] MEDS: ROCEPHIN 1 GM in SODIUM CHLORIDE 50 ML IV SCH (08:43)
[2018-12-21] MEDS: LOVENOX SUBCUT SCH (08:44)
[2018-12-21] MEDS ORDERED: TYLENOL LIQUID 650 MG/20.3 ML PO STA (11:59)
[2018-12-21] MEDS ORDERED: TYLENOL LIQUID 650 MG/20.3 ML ONE (12:08)
[2018-12-21] MEDS: LANTUS SUBCUT SCH (21:36)
[2018-12-22] MEDS: LOVENOX SUBCUT SCH (09:27)
[2018-12-22] MEDS: GLUCOPHAGE PO SCH ×2 (11:21→16:52)
[2018-12-22] MEDS: JARDIANCE PO SCH (11:21)
[2018-12-22] MEDS: HUMULIN R SUBCUT PRN (11:23)
[2018-12-22] MEDS: PRECOSE PO SCH ×2 (11:38→16:53)
[2018-12-22] MEDS: ROCEPHIN 1 GM in SODIUM CHLORIDE 50 ML IV SCH (14:32)
[2018-12-23] MEDS: GLUCOPHAGE PO SCH ×2 (08:14→16:52)
[2018-12-23] MEDS: JARDIANCE PO SCH (08:14)
[2018-12-23] MEDS: ROCEPHIN 1 GM in SODIUM CHLORIDE 50 ML IV SCH (08:15)
[2018-12-23] MEDS: LOVENOX SUBCUT SCH (08:16)
[2018-12-23] MEDS: PRECOSE PO SCH ×3 (08:16→17:40)
[2018-12-23] MEDS: HUMULIN R SUBCUT PRN (11:14)
[2018-12-23] MEDS ORDERED: POTASSIUM CHLORIDE 20 MEQ VIAL 20 MEQ, INFUVITE ADULT 10 ML in SODIUM CHLORIDE 1,000 ML IV SCH (16:00)
--- NOTE | 2018-12-23 16:27 | DI ---
EXAM: Two views of the chest. History: Follow-up pneumonia Comparison: Chest radiograph 12/18/2018 Findings: Heart size is within normal limits. Nodular infiltrates are again seen throughout the rig ht lung slightly improved compared to the prior study. No pneumothorax. Small right pleural effusio n again noted. No acute osseous abnormalities. Bronchial wall thickening. Impression: Nodular infiltrates are again seen throughout the right lung slightly improved compared to the prior study. Persistent small right pleural effusion. Continued follow-up recommended to ass ure resolution.
[2018-12-23] MEDS ORDERED: INFUVITE ADULT IV ONE (17:09)
[2018-12-23] MEDS: INFUVITE ADULT 10 ML in SODIUM CHLORIDE 0.45%-KCL 20 MEQ 1,000 ML IV SCH (17:25)
[2018-12-24] MEDS ORDERED: INFUVITE ADULT IV ONE (04:03)
[2018-12-24] MEDS: INFUVITE ADULT 10 ML in SODIUM CHLORIDE 0.45%-KCL 20 MEQ 1,000 ML IV SCH (04:10)
[2018-12-24 06:08] VITALS: BP 155/90; TEMP 98.4
[2018-12-24] MEDS: JARDIANCE PO SCH (08:39)
[2018-12-24] MEDS: GLUCOPHAGE PO SCH (08:39)
[2018-12-24] MEDS: PRECOSE PO SCH ×2 (08:39→11:44)
[2018-12-24] MEDS: ROCEPHIN 1 GM in SODIUM CHLORIDE 50 ML IV SCH (08:40)
[2018-12-24] MEDS: LOVENOX SUBCUT SCH (08:44)
--- NOTE | 2018-12-24 10:49 | PN ---
DATE OF SERVICE: 12/20/18 SUBJECTIVE: The patient is alert and responsive. He extended his hand to me and I shook hands with him. He does recognize my voice and also called out my name. The patient had movement of all extremities. Temperature 97.9, pulse 81, blood pressure 123/74, respiratory rate 18, oxygen saturation 97 at room air. NECK: No masses, no bruit and no distention of the jugular veins at near supine posterior LUNGS: Breath sounds are heard better on the right. Both are diminished but much more on the left and no wheezing. HEART: Audible and regular with good tones ABDOMEN: Unremarkable CBC early this morning showed WBC 7,000, hgb 7.5, hct 21.9, MCV 83.9, MCH 28.7. Atrial blood gasses on room air, acceptable. Oxygen saturation 94, pCo2 70, pH 7.475. Electrolyte are normal, BUN slightly higher today and creatinine slightly lower. Blood sugar is 105.8, A1c 8.90, Plasma C Peptide is 2.5, GFR is now 44, Procalcitonin 2.33. His total protein is down now to 4.98. Albumin down to 2.24. Urinalysis 3+ blood, 2-5 RBC, 2+ sugar, 3+ protein, negative leukocyte esterase, negative nitrate, 0-2 WBC. MTDD
--- NOTE | 2018-12-24 10:52 | PN ---
DATE OF SERVICE: 12/21/18 SUBJECTIVE: The patient is alert and about the same as yesterday. His temperature at 1:50pm today showed a 98.6, pulse 90, blood pressure 137/68, respiratory rate 18, oxygen saturation 95 at room air. LUNGS: Diminished breath sounds but better air exchange on the right, no wheezing. No rales. HEART: Audible and regular ABDOMEN: Unremarkable LOWER EXTREMITIES: No tenderness in the calf muscles No labs were done today. This patient seems to have a good appetite. He had eaten 100% of food since admission. He had been on Lovenox since admission at 40mg SUBCUT daily. MTDD
--- NOTE | 2018-12-24 11:02 | PN ---
DATE OF SERVICE: 12/22/18 SUBJECTIVE: The patient today is alert and we have discussed about him going to the shelter. He did talk to his daughter and what I could gather from their discussion is that his daughter is not going to be in charge for him. He is willing to go to the shelter and he wanted him and his daughter to look at the shelter whether it is suitable for him. I don't know what progress they have done with that. After he was done with the conversation with his daughter I proceeded to talk to him about the shelter and rehab. I told him that he get physical therapy as well as exercise while in the shelter and get him stronger. After that he decides to go home we would have to look for social media content specialist that would be available including his medication administration since the relatives are not willing to help him with that and they don't want him to be leaving with them from what I understood. VITALS SIGNS: Temperature 98.3, pulse 82, blood pressure 157/88, respiratory rate 14 and oxygen saturation 98 room air. LUNGS: Still clear although diminished more on the left side. No wheezing. HEART: Audible with good tones. ABDOMEN: No tenderness LOWER EXTREMITIES: The edema on both feet is less. Pedal pulses are present. He has an amputation of the big toe left side as well as the second toe from erosion of the right first digit of the foot. Diagnosis maybe infection versus gout. Chronic foreign body in the soft tissue of the right second digit. Soft tissue swelling. This was done 12/19/18. Also the left foot. Amputation of right and second digits of the left foot. There is a foreign body linear in the third digit of the left foot measuring 1.1cm. MTDD
--- NOTE | 2018-12-24 11:11 | HP ---
DATE OF SERVICE: 12/18/18 CHIEF COMPLAINT: Weakness, no food and no insulin the last 5 to 6 days. SOURCE OF HISTORY: The patient and emergency room notes. HISTORY OF PRESENT ILLNESS: The patient was brought by relatives to the emergency room since he claimed that he had stopped taking his medication and indeed he had not had insulin for the last 5 or 6 days. Also, no one is able to take care of him. The patient was cheerful at the emergency room and he had been diabetic for the last 20 years and had been legally blind for a few years now. The patient was evidently in [place] with his son and then with his daughter in [place]. She claimed that she was no longer able to assist in his care. The POA and the DNR status is unknown. Workup in the emergency room showed severe anemia 8.8 gm, hemoglobin /hematocrit 26.3, platelet count normal 230,000, WBC 7,680. PT/INR normal. BMP - normal electrolytes, normal anion gap, BUN 28.8, creatinine 1.78, GFR 40, blood sugar 292, lactic acid 0.55, slightly below normal. Protein is below normal. NT-Pro-BNP 3,200. I am not certain what is causing the elevation. Total protein 5.56, albumin 2.68 and it is much lower if the patient is hydrated. No urinalysis done on admission to the emergency room. Chest x-ray 12/18/18 patchy densities in the right lung field with small pleural effusion, consider pneumonia. CT scan of the abdomen and pelvis done in the emergency room 12/18/18 because of abdominal pain and cramping. Impression: Moderate right - more left pleural effusion with scattered areas of ground glass attenuation and subsegmental atelectasis, consolidation involving the right middle lobe and lower lobes. Recommend correlation to exclude pneumonia. Note: Adrenal adenoma 2.4 x 1.6. ASSESSMENT: 1. The patient is admitted for uncontrolled diabetes. 2. Questionable pneumonia. 3. Severe anemia PAST PERSONAL HISTORY: The patient had been diabetic for more than 20 years. The patient is blind in the left eye and markedly decreased vision on the right. He claims that he doesn 't see lights anymore - he use to. He is totally blind now. The patient claimed to have had a CVA but he has movement of all extremities and he doesn't recall as to when. He has history of hypertension, chronic obstructive lung disease, chronic cough. He does complain of joint pains - osteoarthritis. He still smokes until today. He denies any history of blood disorders. No history of previous bleeding. FAMILY HISTORY: Sister is hypertensive with diabetes. Mother had diabetes mellitus. Mother had brain tumor. SOCIAL HISTORY: The patient is single and was residing with the daughter. His daughter claims that he is no longer able to take care of him. This patient is on [facility]. He had been blind for some time and this patient should be on Medicare. He still smokes cigarettes until today but no longer since being admitted to the hospital. MEDICATIONS: (PRIOR TO THIS ADMISSION) Humulin R 2 to 12 units three times a day Basaglar 15 units at bedtime Ondansetron 8 mg p.o. one to three times a day p.r.n. Gabapentin 100 mg capsule three times a day Lisinopril 20 mg daily Acyclovir 800 mg five times a day Januvia 100 mg daily ALLERGIES: PENICILLIN REVIEW OF SYSTEMS: CONSTITUTIONAL: The patient is claiming of being very tired but no fever or chills. The patient had not been eating or maybe there was not enough food at home. CONSULTING DATABASE ADMINISTRATOR: The patient has history of CVA but no residuals noted. No syncopal episode. No seizure events. VISUAL: The patient is blind. AUDITORY: The patient is able to hear. Denies any tinnitus, pain or drainage. RESPIRATORY: The patient has a cough but not repetitive. He has history of COPD and chronic tobacco use and abuse persistent until admission. No history of hemoptysis. CARDIOVASCULAR: Denies any chest pain now or chest tightness or palpitation. GASTROINTESTINAL: No nausea, anorexia or dysphagia. No significant abdominal pain. No change in bowel habits or diarrhea. GENITOURINARY: The patient does not have any dysuria or frequency. MUSCULOSKELETAL: The patient has an amputation of the left big toe as well as part of the second toe with some swelling of the left foot as well as the right. INTEGUMENT: The patient does have some areas of scabbing which probably is secondary to either scratching. No rash or any ecchymosis. ENDOCRINE: The patient does not have polyuria or polydipsia. He had no insulin the last 5 to 6 days. This patient is not acidotic. I doubt if he is insulin dependent; if he was he would have been in trouble by now without insulin for the last 6 days. HEMATOLOGIC: Pale, no source of external bleeding. PSYCHIATRIC: The patient has history of depression. Affect seems to be normal. He does remember me when I walk into the room and say "ida Blum". PHYSICAL EXAMINATION: GENERAL: We have a 53-year-old male who looks older than his chronological age, admitted to the hospital because of uncontrolled diabetes mellitus and no medication in the last 4, 5 to 6 days and no adequate meals or not eating. He is severely anemic 8.8 gm of hemoglobin, 26.3 hematocrit. BUN elevated at 28.8. Chest x-ray - some abnormality may be pneumonitis and CT scan of the abdomen and pelvis showed pleural effusion, right side. VITAL SIGNS: On admission, temperature 98.7, pulse 83, BP 98/62, respiratory rate 20, oxygen saturation 93 on room air. Height is 5'9", weight 145 lbs. The patient was given insulin in the emergency room and continued. No IV fluids were given but the patient was given Rocephin intravenously 1 gm. HEAD: Unremarkable. Scalp: No active dermatitis. Face is symmetrical and equal with no facial weakness. No significant tenderness in the frontal or maxillary sinus areas to palpation and/or pressure. EYES: The left corneal chamber is opacified and also part of the right. No light reflex. MOUTH: Unremarkable. THROAT: No inflammation, no tumors, no exudate. NECK: No masses. No bruit. CHEST: Symmetrical and equal with good expansion. LUNGS: Breath sounds are heard better on the right side than the left. There is no expiratory wheezing and no rales. HEART: Audible and regular with good tones. No murmurs. ABDOMEN: Flat, soft with no remarkable tenderness. No masses palpable. Bowel sounds are active. EXTERNAL GENITALIA: Unremarkable. RECTAL: Not performed. LOWER EXTREMITIES: Essentially symmetrical and equal with some ankle edema. There is edema in both feet, more on the left side with the previous amputation. Pedal pulses are palpable. UPPER EXTREMITIES: Symmetrical and equal. ASSESSMENT: 1. DIABETES MELLITUS, PROBABLY TYPE 2, UNCONTROLLED. 2. NONCOMPLIANT WHETHER VOLUNTARILY OR INVOLUNTARY. THIS PATIENT LIVES BY HIMSELF WITHOUT ANY HELP SO WOULD NOT BE ABLE TO TAKE HIS MEDICATION. 3. TOTAL BLINDNESS. 4. HISTORY OF OSTEOMYELITIS RESULTING IN AMPUTATION OF FOOT. 5. CHRONIC TOBACCO USE AND ABUSE, PERSISTENT. 6. HISTORY OF COPD. 7. QUESTIONABLE PNEUMONIA. 8. CHRONIC KIDNEY DISEASE, STAGE 3. PROGNOSIS: Guarded to poor. This patient most likely will be going to the [facility] since there is no one in the family who wants to take care of him. TIME SPENT: GREATER THAN 65 MINUTES MTDD
--- NOTE | 2018-12-24 11:12 | PN ---
DATE OF SERVICE: 12/23/18 SUBJECTIVE: 53 year old male who is diabetic and totally blind and given oral medications for his diabetes. His plasma C-Peptide level is 2.5 probably indicates the type 2 diabetes and insulin independent. I have discontinued the long acting insulin last night. His fasting blood sugar today is good, 163.4. They were higher before they were 292, 105 and then 446. The patient was given Metformin 500mg twice a day, Jardiance 25mg daily and Precose 25mg with each meal. The Humulin R is discontinued today and see what happens tomorrow. We also give him some fluid and see if the BUN goes to normal and his hgb and hct will be further down below 7 that he might require a transfusion. A rectal examination was done today and the anal sphincter is competent. The stool is brownish in color and there is no tumor. The stool however is firm. LUNGS: Still about the same, better air exchange in the right, less in the left but no rales. HEART: Audible and regular with good tones. ABDOMEN: unremarkable The patient remained conscious and pleasant. He ate 100% of his meals today. VITAL SIGNS: Temperature 98.7, pulse 84, blood pressure 120/68, respiratory rate 18,oxygen saturation 94% room air. Another chest x-ray is ordered as a followup from the previous one on 12/18/18 because of a questionable pneumonia. We will see if that pleural effusion and pneumonia has resolved. His NT PRo BNP is lower than admission, now 16,500 from 30,200. The Procalcitonin is down to 0.25. Total Protein and albumin is still low but the patient's appetite is good hoping he would get better when he is in the rehab facility. ALINA
--- NOTE | 2019-01-23 10:05 | DS ---
DATE OF SERVICE: 12/24/18 PATIENT IDENTIFICATION: 53-year-old male was admitted on 12/18/18 via the emergency room, The patient was brought by relatives to the emergency room because he stopped taking his medications six days ago including insulin. The reason for admission is uncontrolled blood sugar, noncompliance, pneumonitis, questionable right lung. The patient also appears to be dehydrated with BUN 28.8, creatinine 1.78, estimated GFR 40. The GFR has improved. On the day of discharge was 53. Blood sugar was 194.8. PERTINENT PHYSICAL FINDINGS: Opacified cornea left, more than the right and patient has complete blindness. He does not have any light perception. Lungs have diminished breath sounds, more on the left side. No wheezing. No rales. Heart is regular, no murmurs. Abdomen has no remarkable tenderness. No masses palpable. Bowels are active. WORKUP DURING THIS ADMISSION: Beginning from the emergency room his chest x-ray showing some other patchy densities in the right lung, a small pleural effusion. Repeat chest x-ray five days later showed some improvement. CT scan of the abdomen and pelvis showed moderate right and small left pleural effusion, ground glass attenuation and subsegmental atelectasis or consolidation in the right middle and lower lobe. Correlation to exclude pneumonia. X-ray right and left foot there is a foreign body in the third toe, left side 1.1 cm and multiple punctate foreign bodies in the right foot. The patient was seen by PT as well as OT. The patient's sputum culture did grow normal treva and the blood cultures were negative after five days. The patient received Azithromycin 500 mg daily for three days and Ceftriaxone 1 gm intravenously daily. He was continued on Metformin and placed on Jardiance 25 mg daily as well as Acarbose 25 mg with each meal. He also received Lantus 10 units subcutaneously at bedtime. This was increased to 20 units. The patient was given intravenous fluids consisting of 0.45 sodium chloride 1000 cc plus 20 mEq KCL and MVI at 83 cc/hr. This was repeated. The patient's C-peptide level 2.5 and the fasting insulin level was 5.6, normal. Hemoglobin A1C 8.90. His blood sugar was gradually decreasing and at discharge it was 194.8. At one time his blood sugar was down to 105.8 mg percent. He has severe anemia with hemoglobin of 7.4, normal WBC, normal platelet count. No obvious signs of blood loss externally. He had no hemoptysis, no blood in the stool, no gross blood in the urine. He has 2+ blood but only 2 to 5 RBC. The patient's occult blood was negative obtained after a rectal examination. Urine drug screen on admission was negative and LINH 65 autoantibody is less than 5.0. PHYSICAL EXAMINATION: The patient on day of discharge 12/24/18, the patient was alert. Vital signs early in the morning at 6:00 was 98.4 temperature and he had been afebrile throughout his hospital stay. His pulse was 89, blood pressure 155/90, respiratory rate 16, oxygen saturation 93 on room air. LUNGS: Diminished breath sounds. HEART: Audible with good tones. The patient is going home to his friend's residence, Mr. Kelvin Goldman who is going to come and pick him up. The patient was instructed to see Leny El for followup. New prescriptions on discharge were Acarbose 25 mg with each meal except dinner 300 mg every 12 hours, Jardiance 25 mg daily, Metformin 500 mg twice a day. He is to resume Lisinopril 20 mg daily. Continue checking his blood sugar two to three times a day and record it and present it to the primary care provider. He was advised to stop Acyclovir as well as Gabapentin. He also was instructed not to take any insulin. FINAL DIAGNOSES: 1 TYPE 2 DIABETES MELLITUS, UNCONTROLLED. 2. NONCOMPLIANCE. 3. HYPERTENSION, NEAR GOOD CONTROL. 4. TOTAL BLINDNESS. 5. QUESTIONABLE PNEUMONITIS RIGHT MIDDLE AND LOWER LOBE, IMPROVED. 6. CHRONIC TOBACCO USE AND ABUSE PERSISTENT. 7. AMPUTATION LEFT FIRST AND SECOND TOES, FOREIGN BODY LEFT THIRD TOE WELL RIGHT FOOT AMPUTTED. 8. COPD. 9. HYPOXEMIA SECONDARY TO COPD AND CHRONIC TOBACCO USE. PROGNOSIS: GUARDED. TIME SPENT: GREATER THAN 30 MINUTES MTDD
== END 2018-12-24 13:55 | disposition home or self-care (01) | DRG 195 ==
LOC: ED 14:48 → UNDOADMIN 19:34 → MEDSURG B 19:34
PROVIDERS: ADMIT General Practice; ATTEND General Practice
DX: J18.9 Pneumonia, unspecified organism (principal); N18.3 Chronic kidney disease, stage 3 (moderate); I10 Essential (primary) hypertension; H54.8 Legal blindness, as defined in USA; J44.9 Chronic obstructive pulmonary disease, unspecified; D64.9 Anemia, unspecified; R41.0 Disorientation, unspecified; R53.1 Weakness; R50.9 Fever, unspecified; R09.02 Hypoxemia; Z72.0 Tobacco use; Z91.19 Patient's noncompliance with other medical treatment and regimen
CPT/HCPCS: 36415; 80053; 80069; 80306; 81001; 82272; 82728; 82803; 82947; 82962; 83036; 83519; 83525; 83540; 83550; 83605; 83735; 83880; 84145; 84466; 84681; 85025; 85045; 85610; 87040; 93005; 93010; 96372; 97802; 99285

== ENCOUNTER 2019-01-13 17:51 | Outpatient (CLI) ==
[2019-01-14 01:50] VITALS: BMI 26.8
== END 2019-01-13 18:16 | disposition critical access hospital (66) ==
LOC: AMBL 17:51
PROVIDERS: ATTEND Internal Medicine
DX: R53.1 Weakness (principal); E11.65 Type 2 diabetes mellitus with hyperglycemia; H53.9 Unspecified visual disturbance; Z91.14 Patient's other noncompliance with medication regimen

== ENCOUNTER 2019-01-13 18:23 | Inpatient (IN) ==
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
--- NOTE | 2019-01-13 19:34 | CT ---
EXAM: CT abdomen pelvis without contrast HISTORY: Pain, weakness, malaise, dehydration, hyperglycemia COMPARISON: None TECHNIQUE: CT abdomen pelvis performed without intravenous contrast. Coronal and sagittal reformatt ed images obtained. FINDINGS: Please refer to separate report CT chest noting right greater than left pleural effusions and bilateral consolidation likely representing pneumonia. No free air. No acute abnormalities of t he bones. Degenerative change in the spine. Evaluation organ parenchyma limited without contrast. Liver unremarkable. Gallbladder unremarkable. Pancreas unremarkable. Spleen unremarkable. 2 cm le ft adrenal nodule measuring negative 12 HU. No hydronephrosis or nephrolithiasis. Mild bladder wall thickening. Prostate normal in size.. Aorta normal in caliber. Moderate atherosclerosis. Body wa ll edema. Stomach unremarkable. No dilated loops small bowel. Appendix appears normal. Moderate f ecal retention in the colon. Small fat-containing left inguinal hernia. Minimal fat-containing karen umbilical hernia. IMPRESSION: 1. Bilateral pleural effusions with bilateral consolidation likely represent pneumonia. Please ref er to separate report CT chest. 2. Bladder wall thickening may relate to changes of chronic outlet obstruction or cystitis 3. Body wall edema. 4. Moderate fecal retention in the colon. 5. Left adrenal adenoma. 6. Atherosclerosis.
--- NOTE | 2019-01-13 19:35 | CT ---
EXAM: CT chest without contrast HISTORY: Cough with malaise and dehydration COMPARISON: Chest x-ray 12/23/2018 and multiple prior x-rays TECHNIQUE: Serial axial images of the chest were obtained from the lung apices to the upper abdomen without contrast. These were viewed in multiple planes. FINDINGS: The thyroid is normal. The visualized vessels are unremarkable without aneurysm or stenos is. The heart is normal in size without pericardial effusion. There is a right pretracheal lymph no de measuring 0.9 cm in short axis. There is a subcarinal lymph node measuring 1.2 cm. Hilar lymph n odes are likely present, but poorly visualized due to lack of contrast. There is a nodule adjacent t o the vessels in the superior mediastinum on image 24 measuring 1.3 cm. There is a moderate right and a small left pleural effusion. There is no pneumothorax. There is pat juanjose ground-glass nodularity throughout the right upper lobe, right middle lobe and right lower lobe. There is a focal area of consolidation in the right upper lobe with questionable central cavitation seen on axial image 23 and coronal image 56. There is minimal airway thickening in the left lower lo be mild nodular ground-glass in the left lung apex. The central airways are otherwise patent. The osseous structures demonstrate degenerative disease of the spine with old healed right rib fractu res. Limited views of the soft tissues in the upper abdomen are unremarkable. IMPRESSION: 1. Right lung patchy ground-glass nodularity and consolidation in the right upper lobe with area of concern for central cavitation. This is most consistent with pneumonia. Recommend follow-up to reso lution to exclude underlying mass. 2. Moderate right and small left pleural effusion. 3. Mediastinal lymph nodes are likely reactive.
[2019-01-13] MEDS ORDERED: SODIUM CHLORIDE 1,000 ML IV STA (19:48)
[2019-01-13] MEDS ORDERED: HUMULIN R SUBCUT STA (20:36)
[2019-01-13] MEDS ORDERED: LACTATED RINGERS 1,000 ML IV STA (21:27)
[2019-01-13] MEDS ORDERED: MAXIPIME 2 GM in SODIUM CHLORIDE 100 ML IV STA (23:46)
[2019-01-13] MEDS ORDERED: TYLENOL PO PRN (23:50)
[2019-01-13] MEDS ORDERED: ZOFRAN 4 MG/2 ML IVP PRN (23:50)
[2019-01-13] MEDS ORDERED: MAXIPIME ONE (23:52)
[2019-01-13] MEDS ORDERED: DUONEB NEB STA (23:58)
[2019-01-13] MEDS ORDERED: SODIUM CHLORIDE 100 ML IV ONE (23:59)
[2019-01-14 01:50] VITALS: BMI 26.8
[2019-01-14] MEDS: ZITHROMAX PO SCH ×2 (02:22→10:03)
[2019-01-14] MEDS: ZITHROMAX PO STA ×2 (02:25→02:31)
[2019-01-14] MEDS: DUONEB NEB SCH ×4 (04:40→19:30)
[2019-01-14] MEDS ORDERED: NON-FORMULARY MEDICATION (Lisinopril [Lisinopril] 20 MG) PO SCH (09:00)
[2019-01-14] MEDS ORDERED: NON-FORMULARY MEDICATION (Empagliflozin [Jardiance] 25 MG) PO SCH (09:00)
[2019-01-14] MEDS ORDERED: NUTRITIONAL SUPPLEMENT PO SCH (09:00)
[2019-01-14] MEDS ORDERED: [UNRECOGNIZED DRUG - OTHER] PO SCH (09:00)
[2019-01-14] MEDS: MAXIPIME 2 GM in SODIUM CHLORIDE 100 ML IV SCH ×2 (10:00→20:23)
[2019-01-14] MEDS: JARDIANCE PO SCH (10:01)
[2019-01-14] MEDS: ZESTRIL PO SCH (10:02)
[2019-01-14] MEDS: GLUCOPHAGE PO SCH ×2 (10:03→18:40)
[2019-01-14] MEDS: LOVENOX SUBCUT SCH (10:03)
[2019-01-14] MEDS: PRECOSE PO SCH ×3 (11:13→18:45)
[2019-01-14] MEDS: LANTUS SUBCUT SCH (20:20)
[2019-01-14] MEDS ORDERED: INSULIN GLARGINE HUM REC ANLOG 15 UNIT SQ SCH (21:00)
[2019-01-14] MEDS ORDERED: [UNRECOGNIZED DRUG - OTHER] SQ SCH (21:00)
[2019-01-15] MEDS: MAXIPIME 2 GM in SODIUM CHLORIDE 100 ML IV SCH ×4 (04:20→21:56)
[2019-01-15] MEDS: DUONEB NEB SCH ×4 (04:35→22:00)
[2019-01-15] MEDS: JARDIANCE PO SCH (09:15)
[2019-01-15] MEDS: ZESTRIL PO SCH (09:16)
[2019-01-15] MEDS: PRECOSE PO SCH ×3 (09:16→17:02)
[2019-01-15] MEDS: ZITHROMAX PO SCH (09:16)
[2019-01-15] MEDS: LOVENOX SUBCUT SCH (09:17)
[2019-01-15] MEDS: GLUCOPHAGE PO SCH ×2 (09:17→17:02)
[2019-01-15] MEDS: LANTUS SUBCUT SCH (20:23)
[2019-01-16] MEDS: DUONEB NEB SCH ×4 (04:50→19:45)
[2019-01-16] MEDS: PRECOSE PO SCH ×3 (08:17→16:29)
[2019-01-16] MEDS: GLUCOPHAGE PO SCH ×2 (08:18→16:29)
[2019-01-16] MEDS: MAXIPIME 2 GM in SODIUM CHLORIDE 100 ML IV SCH ×2 (08:18→20:49)
[2019-01-16] MEDS: JARDIANCE PO SCH (08:18)
[2019-01-16] MEDS: ZESTRIL PO SCH (08:18)
[2019-01-16] MEDS: ZITHROMAX PO SCH (08:18)
[2019-01-16] MEDS: LOVENOX SUBCUT SCH (08:19)
--- NOTE | 2019-01-16 13:58 | DI ---
EXAM: CHEST FRONTAL AND LATERAL VIEWS HISTORY: Pneumonia. COMPARISON: 12/23/2018 FINDINGS: Heart size remains within normal limits. Low lung volumes. Patchy bibasilar densities mo re noticeable on the right extending into the perihilar region. Small bilateral pleural effusions, m ore noticeable on the right. IMPRESSION: 1. Pleural effusions and bilateral infiltrates, both more noticeable since previous exam.
[2019-01-16] MEDS: LANTUS SUBCUT SCH (20:49)
[2019-01-17] MEDS: DUONEB NEB SCH ×4 (04:35→20:22)
[2019-01-17] MEDS: GLUCOPHAGE PO SCH ×2 (07:59→16:40)
[2019-01-17] MEDS: ZITHROMAX PO SCH (07:59)
[2019-01-17] MEDS: ZESTRIL PO SCH (07:59)
[2019-01-17] MEDS: MAXIPIME 2 GM in SODIUM CHLORIDE 100 ML IV SCH ×2 (07:59→20:33)
[2019-01-17] MEDS: PRECOSE PO SCH ×3 (08:00→16:40)
[2019-01-17] MEDS: JARDIANCE PO SCH (08:00)
[2019-01-17] MEDS: LOVENOX SUBCUT SCH (08:02)
--- NOTE | 2019-01-17 09:23 | PN ---
DATE OF SERVICE: 01/16/19 ATTEMPT CONTACT SUBJECTIVE: Admitted to get in touch with Tash, this is another daughter of Mr. Harsh Blum. [phone]. There was no answer so I left a message and left my phone number. Today is 01/16/19 time 15:38pm. I needed to talk to her with regards to her dad going home and whether he can go home to her residence or to some place. ALINA
--- NOTE | 2019-01-17 09:24 | PN ---
Discussed the case with Ary with regards to her brother Harsh Blum. I need to know whether there is a way that he could make arrangement or they do not want him to be back to anyone of the relatives. The last time he was in the hospital under my services that he was discharged to a friend. I used the Hospice phone to call her and it is now 3:25pm. ALINA
--- NOTE | 2019-01-17 09:29 | PN ---
DATE OF SERVICE: 01/16/19 Telephone conversation SUBJECTIVE: Telephone conversation with Kat Blum a daughter of Mr. Harsh Blum. I did call the phone number [phone] and I did ask her where she is residing and she told me that she lives in [place], [place]. The time is now 03:33pm. I did ask her about where her dad would be going when he is being discharged from the hospital. She told me in a round about way that he could not stay her at house since she would get in trouble if he would come to her house. I asked directly then if she doesn't want her dad to stay or come to her and she yes she doesn't want him to come to her house and stay with her. I asked her if she has any other siblings and she told that Tash who also lives in [place] and gives me the phone number of [phone]. I would proceed to call her. ALINA
--- NOTE | 2019-01-17 09:39 | PN ---
DATE OF SERVICE: 01/16/19 TELEPHONE CONVERSATION SUBJECTIVE: Phone conversation with Tash Blum, she did return my call and I did talk to her. 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 I told her I just wanted to know where her Dad is going to be. 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 ALINA
--- NOTE | 2019-01-17 10:22 | PN ---
DATE OF SERVICE: 01/16/19 SUBJECTIVE: After I talked to Tash Blum my phone was ringing again and it was Ary Blum a sister of Mr. Harsh Blum. She did call me back since I left a message to her phone and she identified herself as the sister and she told me that she had taken care of him for about two years. She had made some arrangements for him to go to the skilled nursing in [place] but the patient refused. Harsh Blum did leave with his brother Lester in [place] but Lester had to push him out of the house. I did not ask for the particular reason but Ms. Ary Blum told me that Lester did evict Mr. Harsh Blum from his residence. Ms. Ary Blum did also tell me that she talked to Mr. Gtz and Mr. Gtz was willing to take him home. I did tell Ms. Ary Blum that Mr. Harsh Blum probably would have more problems that is coming since he does not take his medication when he is home. The last time I saw him and was admitted to the hospital that the reason where he ran into problems was because he did not take any of his medications for several days. I reemphasized to Ms. Ary Blum that Mr. Harsh Blum will get into problems, probably his demise if things persist. I did advise her to see if he could get an acceptance from [facility] and so when I talked to him and discharge him that if he is accepted I could discuss that with him and in fact I would probably discuss that with Mr. Blum today. ALINA
--- NOTE | 2019-01-17 15:38 | CT ---
EXAM: CT Head HISTORY: History of brain tumor, change in mental status COMPARISON: 10/15/2018 TECHNIQUE: CT head performed without contrast FINDINGS: There is no mass effect, midline shift, or intracranial hemmorhage. Whitlock white differenti ation is preserved. There is no extra-axial collection. The ventricles, sulci, and basal cisterns a re patent and symmetric. There is no depressed calvarial fracture. Right mastoid effusion. The visu alized paranasal sinuses are clear. IMPRESSION: 1. No acute intracranial abnormality. 2. Right mastoid effusion, unchanged.
[2019-01-17] MEDS: LANTUS SUBCUT SCH (20:33)
[2019-01-18] MEDS: DUONEB NEB SCH ×4 (05:05→20:07)
[2019-01-18] MEDS: JARDIANCE PO SCH (08:48)
[2019-01-18] MEDS: PRECOSE PO SCH ×3 (08:48→17:16)
[2019-01-18] MEDS: MAXIPIME 2 GM in SODIUM CHLORIDE 100 ML IV SCH (08:49)
[2019-01-18] MEDS: COREG PO SCH ×2 (08:49→17:16)
[2019-01-18] MEDS: ZESTRIL PO SCH ×2 (08:49→20:36)
[2019-01-18] MEDS: LOVENOX SUBCUT SCH (08:49)
[2019-01-18] MEDS: GLUCOPHAGE PO SCH ×2 (08:49→17:16)
--- NOTE | 2019-01-18 13:35 | PN ---
DATE OF SERVICE: 01/17/19 CONVERSATION: Conversation with Ms. Tonya Blum. I called back since I was not able to answer the phone at that time when she called and during the course of the conversation she told me whether her [id number], Mr. Harsh Blum, can be referred to [facility]. Her brother, if I have it right, had a stroke and did very well and was able to recover quite well after the stroke. I told her we will explore it but most likely if possible it would be an outpatient and not an inpatient program for rehabilitation. She told me that "this is not Harsh's behavior that you know" and I told her that I do not know that, I just first met him when he was admitted some 2 to 3 weeks ago at [facility]. Also, Ms. Ary Blum did call me back and give me a phone number for her brother Lester Blum. I told her that I had the number that was provided to me by Mrs. Tonya Blum and she told me that that number may have been discontinued and Lester's is Thea and her phone number is . I dialed [phone] and indeed it is no longer functioning. I did call [phone] and a woman did answer and I asked if that was Thea Bulm, the of Lester Blum. I did tell her that I would like to talk to Lester Blum and he did come to the phone and I told him that the brother, Harsh Blum is in the hospital and I wanted to know whether at the time of discharge that he would be able to stay with him or not and he told me "no". He then hung up the phone. ALINA
--- NOTE | 2019-01-18 13:58 | CONS ---
DATE OF CONSULTATION: 01/17/19 REASON FOR HOSPITALIZATION: Shortness of air. HISTORY OF PRESENT ILLNESS: This 53-year-old White/ male was brought to ER 01/13/19 after someone noticed him sitting in his vehicle. History of diabetes mellitus, not sure when he last ate or took medications. Complains of weakness, elevated blood sugar. REVIEW OF SYSTEMS: CONSTITUTIONAL: Positive for fatigue, malaise and weakness. No night sweats. No lethargy. No fever or chills. HEENT: Eyes: No visual changes. No eye pain. No eye discharge. ENT: No sinus drainage. No epistaxis. No sinus pain. No sore throat. No odynophagia. No ear pain. No congestion. RESPIRATORY: Intermittent cough, no congestion. No hemoptysis. No shortness of breath. CARDIOVASCULAR: No angina symptoms. No CHF symptoms. No atypical chest pain for CAD. No palpitations. No orthopnea. GASTROINTESTINAL: No abdominal pain. No nausea or vomiting. No diarrhea or constipation. No hematemesis. No hematochezia. GENITOURINARY: No urgency. No frequency. No dysuria. No hematuria. No obstructive symptoms. No discharge. No pain. No significant abnormal bleeding. MUSCULOSKELETAL: No musculoskeletal pain. No joint swelling. NEUROLOGICAL: No headache. No neck pain. No syncope. No seizures. No dizziness. PSYCHIATRIC: Depression. No mention of suicidal thoughts. Not anxious. No homicidal thoughts. SKIN: Dry with numerous scratches and scabbed areas. ENDOCRINE: No unexplained weight loss. No weight gain. HEMATOLOGIC/LYMPHATIC: No anemia. No purpura. No petechiae. No prolonged or excessive bleeding. No palpable lymph nodes. MEDICATIONS: Jardiance Precose Lisinopril Glucophage Lantus ALLERGIES: PENICILLINS PAST MEDICAL/SURGICAL HISTORY: Osteomyelitis left great toe with amputations 2018 Diabetes mellitus type 2 with hyperglycemia Blind Pneumonia Anemia Noncompliance SOCIAL/PERSONAL/FAMILY HISTORY: The patient is a smoker. Alcohol use. Substance abuse. The patient is . He lives with friends or family members when they will take him in. PHYSICAL EXAMINATION: GENERAL: The patient is oriented times three. Pallor positive. VITAL SIGNS: Pulse 90, BP 166/90, temperature 97.7, 02 sat 97% on 2L. Weight 187 #. HEENT: Head normocephalic, atraumatic. Eyes: Extraocular muscles are intact. Pupils are equal, round and reactive to light and accommodation. Ears: No lesions. Nose appeared normal. Throat: No exudate or erythema. NECK: Supple. No JVD, no carotid bruit. No lymphadenopathy or thyromegaly. LUNGS: Decreased breath sounds. Clear to auscultation. Percussion note normal. Chest symmetrical. HEART: S1, S2, no S3. No murmurs. No cyanosis or clubbing. No ascites. Pulses: Dorsalis pedis and posterior tibial pulses +1 strong. ABDOMEN: Soft. Nontender. Bowel sounds active. No CVA tenderness. No mass felt. EXTREMITIES: No edema. Full range of motion of all extremities, equal. NEUROLOGIC: No focal deficit. Cranial nerves II through XII are grossly intact. No headache, no double vision or headache. SKIN: Not dry. Intact. Turgor - normal. LYMPHATIC: No palpable lymph nodes/no lymphedema. MUSCULOSKELETAL: Normal joints with no swelling. Muscle tone is normal. LABS: RBC 2.68, hemoglobin 7.6, hematocrit 23.3, BUN 21.5, creatinine 1.47, glucose 184.6, A1C on 12/19/18 of 8.90. Anemia profile 12/24/18, iron 29.1, TIBC 245, % saturation 12, Transferrin 168, ferritin 252.0, retic Hgb 33.1. EKG 01/13 SR with strain pattern. ST and T wave abnormality. Chest x-ray 01/16 Pleural effusions with bilateral infiltrates both present on previous exam 12/23/18. CT head 01/17 - no acute abnormality. Drugscreen urine - Positive for amphetamine, Methamphetamine on 01/13, 01/15 and 01/16. Positive amphetamine 01/17. ASSESSMENT: 1. ANEMIA 2. SEDENTARY LIFESTYLE 3. SMOKING/COPD/DRUG ABUSE 4. CARDIAC ? WILL DO ECHOCARDIOGRAM 5. HYPERTENSION 6. POOR NUTRITION 7. SHORTNESS OF BREATH MULTIFACTORIAL 8. HYPERTENSION 9. DIABETES MELLITUS TYPE 2 10. COPD RECOMMENDATIONS: 1. Echocardiogram 2. Type and crossmatch 2 units packed cells 3. Patient refused blood transfusion. 4. Abnoxious and aggressive behavior Prognosis is poor. Thanks for the referral. Will follow if he is still here tomorrow. ALINA
[2019-01-18] MEDS: DOXY-100 100 MG in SODIUM CHLORIDE 100 ML IV SCH (20:35)
[2019-01-18] MEDS: LANTUS SUBCUT SCH (20:46)
[2019-01-18] MEDS ORDERED: ATIVAN PO STA (22:41)
[2019-01-19] MEDS: DUONEB NEB SCH ×4 (05:05→22:01)
[2019-01-19] MEDS: JARDIANCE PO SCH (08:32)
[2019-01-19] MEDS: DOXY-100 100 MG in SODIUM CHLORIDE 100 ML IV SCH ×2 (08:32→20:19)
[2019-01-19] MEDS: GLUCOPHAGE PO SCH ×2 (08:32→16:54)
[2019-01-19] MEDS: COREG PO SCH ×2 (08:32→16:54)
[2019-01-19] MEDS: LOVENOX SUBCUT SCH (08:32)
[2019-01-19] MEDS: PRECOSE PO SCH ×3 (08:32→16:54)
[2019-01-19] MEDS ORDERED: SOLU-CORTEF 250 MG IVP STA (10:26)
[2019-01-19] MEDS: ZESTRIL PO SCH ×2 (10:42→20:15)
[2019-01-19] MEDS: LANTUS SUBCUT SCH (20:16)
[2019-01-20] MEDS: DUONEB NEB SCH ×4 (05:50→23:20)
[2019-01-20] MEDS: LOVENOX SUBCUT SCH ×2 (09:00→17:18)
[2019-01-20] MEDS: DOXY-100 100 MG in SODIUM CHLORIDE 100 ML IV SCH ×2 (09:00→20:23)
[2019-01-20] MEDS: JARDIANCE PO SCH (09:01)
[2019-01-20] MEDS: PRECOSE PO SCH ×3 (09:01→17:17)
[2019-01-20] MEDS: ZESTRIL PO SCH ×2 (09:01→20:24)
[2019-01-20] MEDS: COREG PO SCH ×2 (09:01→17:17)
[2019-01-20] MEDS: GLUCOPHAGE PO SCH ×2 (09:01→17:17)
[2019-01-20] MEDS ORDERED: SOLU-CORTEF 250 MG IVP STA (12:16)
--- NOTE | 2019-01-20 16:06 | DI ---
Exam: Two-view chest x-ray. Date: 01/20/2019. Comparison: 01/16/2019. HISTORY: Shortness of breath. FINDINGS: There is a chronic wedge deformity one of the lower thoracic vertebral bodies. There are bilateral pleural effusions with bibasilar atelectasis or consolidation. Cardiac silhouette is enlar ged. Pulmonary vasculature is normal. Impression: No significant change from 01/16/2019. Emphysematous changes with persistent bibasilar atelectasis or consolidation bilateral pleural effusions. Findings may represent persistent congesti ve heart failure.
[2019-01-20] MEDS: LANTUS SUBCUT SCH (20:24)
--- NOTE | 2019-01-20 20:46 | CT ---
EXAM: CT scan abdomen pelvis without contrast HISTORY: Abdominal pain with distension COMPARISON: CT scan abdomen pelvis 01/13/2019 FINDINGS: Contiguous axial images obtained through the abdomen pelvis without contrast utilizing 3-m m collimation. Sagittal and coronal reconstructions were imaged and reviewed.. Redemonstrated are m oderate bilateral pleural effusions with adjacent atelectasis and/or pneumonia. Gallbladder is fluid filled without cholelithiasis. The liver, pancreas, spleen and right adrenal gland have normal unen hanced CT appearance. There is a small left adrenal adenoma. Atherosclerotic changes are seen invol ving the aorta without aneurysm formation. The kidneys are morphologically normal.. Prostate gland normal in size. There is mild concentric bladder wall thickening which may be related to cystitis ve rsus underdistension.. Prominent small bowel loops left upper quadrant which may related to ileus ve rsus gastroenteritis.. There is mild anasarca. Bone windows no evidence of lytic or blastic lesions . IMPRESSION: Stable bilateral pleural effusions with adjacent atelectasis and/or pneumonia. Stable small left adrenal adenoma. Normal appendix. Concentric bladder wall thickening as described. Prominent small bowel loops left upper quadrant which may be related to ileus versus gastroenteritis. Mild anasarca
[2019-01-20] MEDS ORDERED: INFUVITE ADULT IV SCH (21:30)
[2019-01-20] MEDS ORDERED: SODIUM CHLORIDE IV SCH (21:30)
[2019-01-20] MEDS ORDERED: INFUVITE ADULT IV ONE (21:42)
[2019-01-20] MEDS ORDERED: INFUVITE ADULT 10 ML in SODIUM CHLORIDE 1,000 ML IV SCH (22:00)
[2019-01-21] MEDS: DUONEB NEB SCH ×3 (04:55→14:08)
[2019-01-21] MEDS ORDERED: LASIX IVP STA (08:10)
[2019-01-21] MEDS ORDERED: INFUVITE ADULT 10 ML in SODIUM CHLORIDE 1,000 ML IV SCH (08:30)
[2019-01-21] MEDS: DOXY-100 100 MG in SODIUM CHLORIDE 100 ML IV SCH (08:37)
[2019-01-21] MEDS: COREG PO SCH ×2 (08:38→17:23)
[2019-01-21] MEDS: ZESTRIL PO SCH (08:38)
[2019-01-21] MEDS: JARDIANCE PO SCH (08:39)
[2019-01-21] MEDS: PRECOSE PO SCH ×3 (08:39→17:23)
[2019-01-21] MEDS: GLUCOPHAGE PO SCH ×2 (08:39→17:23)
[2019-01-21] MEDS: LOVENOX SUBCUT SCH (08:40)
--- NOTE | 2019-01-21 09:45 | ECHO2D ---
Date of Exam: 01/18/19 Ordering Physician: DR. RADHA NO Room #: 115 Reason for Echo: SOB, PLEURAL EFFUSION M-Mode Normal Adult Results LV Dimensions Normal Adult Results AoV Opening excursions >1.6 >1.6 LVEDD-base- 3.5-5.8 5.3 Ao root dimensions 2.0-3.7 3.4 LVESD-base- 3.1-4.6 L. Atrium dimensions 1.9-3.8 5.1 Post. Wall thickness 0.8-1.1 1.1 IV septum (thickness) 0.7-1.2 1.2 Post. Wall excursion 0.72-1.3 0.9 Septal motion 0.8 Systolic motion R. Ventricular cavity 1.5-2.0 NORMAL LVEF 60% 46% Paradoxical septal wall motion NORMAL 2-D : ENLARGED LEFT ATRIAL CAVITY--MILDLY HYPOKINETIC LEFT VENTRICLE, NORMAL VALVES, NO EFFUSION, NORMAL VALVES COLOR FLOW: MODERATE MITRAL REGURGITATION M-MODE: MV: NORMAL AV: NORMAL TV: NORMAL PV: CHAMBER SIZE: ENLARGED LEFT ATRIAL CAVITY WALL MOTION: MILDLY HYPOKINETIC LEFT VENTRICLE PERICARDIUM: NORMAL INTERPRETATION: 1. LEFT VENTRICULAR HYPERTROPHY--BORDERLINE 2. ENLARGED LEFT ATRIAL CAVITY 3. BORDERLINE ENLARGED LEFT VENTRICLE CAVITY 4. MILDLY HYPOKINETIC LEFT VENTRICLE ( EJECTION FRACTION 45 TO 50%) 5. MODERATE MITRAL REGURGITATION (SCREENING) MTDD
--- NOTE | 2019-01-21 10:02 | PCM.CONS ---
CONSULTING PROVIDER: Dr. FARNAZ DAWKINS ATTENDING PROVIDER: Dr. Hiram SANTOS DATE OF SERVICE: 01/21/19 SUBJECTIVE: This 53 year old WHITE/ M was hospitalized 01/13/19. The patient is lying in bed resting comfortably. The patient is on consult for Dr. Santos. Chest x-ray yesterday showed changes associated with CHF. The patient does state that he is short of breath and does have some leg edema. BNP elevated at 14,000. REVIEW OF SYSTEMS: CONSTITUTIONAL: Weakness. No night sweats. No fatigue, malaise, lethargy. No fever or chills. HEENT: Eyes: No visual changes. No eye pain. No eye discharge. ENT: No runny nose. No epistaxis. No sinus pain. No odynophagia. No congestion. RESPIRATORY: No cough, no congestion. No hemoptysis. Mild shortness of breath. CARDIOVASCULAR: No angina symptoms. No CHF symptoms. No atypical chest pain for CAD. No palpitations. No orthopnea. GASTROINTESTINAL: No abdominal pain. No nausea or vomiting. No diarrhea or constipation. No hematemesis. No hematochezia. GENITOURINARY: No urgency. No frequency. No dysuria. No hematuria. No obstructive symptoms. No discharge. No pain. No significant abnormal bleeding. MUSCULOSKELETAL: No musculoskeletal pain; no joint swelling. NEUROLOGICAL: Awake, alert, oriented to place and person. No headache. No neck pain. No syncope. No seizures. No dizziness. PSYCHIATRIC: Agitated and noncompliant. No depression. No suicidal thoughts. No homicidal thoughts. SKIN: No rash. No lesions. No wounds. ENDOCRINE: No unexplained weight loss. No weight gain. HEMATOLOGIC/LYMPHATIC: No anemia. No purpura. No petechiae. No prolonged or excessive bleeding. No palpable lymph nodes. PHYSICAL EXAMINATION: GENERAL: The patient is awake, alert and oriented, lying in bed in no distress. VITAL SIGNS: Temperature 98.4 F, Pulse 81, Respiratory Rate 16, BP 140/81, Pulse Ox 94% HEENT: Head normocephalic, atraumatic. Eyes: Extraocular muscles are intact. Pupils are equal, round and reactive to light and accommodation. Ears: No lesions. Nose appeared normal. Throat: No exudate or erythema. NECK: Supple. No JVD, no carotid bruit. No lymphadenopathy or thyromegaly. LUNGS: Diminished breath sounds. Clear to auscultation. Percussion note normal. Chest symmetrical. HEART: S1, S2, no S3. No murmurs. No cyanosis or clubbing. No ascites. Pulses: Dorsalis pedis and posterior tibial pulses +1 to +2 both sides. ABDOMEN: Soft. Non-tender. Bowel sounds active. No CVA tenderness. No mass felt. EXTREMITIES: +1 bilateral leg edema. Full range of motion of all extremities, equal. NEUROLOGIC: No focal deficit. Cranial nerves II through XII are grossly intact. No headache, no double vision or headache. SKIN: Warm and dry. Intact. Turgor-normal. LYMPHATIC: No palpable lymph nodes/no lymphedema. MUSCULOSKELETAL: Normal joints with no swelling. Muscle tone is normal. LAB REVIEW: 01/20/19 20:30 01/20/19 20:30 01/20/19 22:18: Urine Opiates Screen Negative, Ur Oxycodone Screen Negative, Urine Methadone Screen Negative, Ur Propoxyphene Screen Negative, Ur Barbiturates Screen Negative, U Tricyclic Antidepress Negative, Ur Phencyclidine Scrn Negative, Ur Amphetamine Screen Negative, U Methamphetamines Scrn Negative, U Benzodiazepines Scrn Negative, Urine Cocaine Screen Negative, U Cannabinoids Screen Negative 01/20/19 20:30: Procalcitonin < 0.05 01/20/19 20:30: PT 9.3, INR 0.93, APTT 28.0 01/20/19 20:30: Sodium 138.6, Potassium 5.15 H, Chloride 107.2 H, Carbon Dioxide 25.3, Anion Gap 11.25, BUN 37.6 H, Creatinine 1.79 H, Estimated GFR ( MDRD) 40.00, BUN/Creatinine Ratio 21.00, Glucose 252.7 H D, Calcium 8.41, Total Bilirubin 0.18 L, AST 22.6, ALT 14.7, Alkaline Phosphatase 126.5 H, NT-Pro-B Natriuret Pep 64052.000 H, Total Protein 5.91 L, Albumin 3.35 L, Globulin 2.56, Albumin/Globulin Ratio 1.30, Amylase 49.2, Lipase 64.6 01/20/19 20:30: WBC 6.01, RBC 3.36 L, Hgb 9.5 L, Hct 29.9 L, MCV 89.0, MCH 28.3 , MCHC 31.8, RDW Coeff of Joe 15.1 H, Plt Count 227, Immature Gran % (Auto) 0.5 , Neut % (Auto) 87.4, Lymph % (Auto) 9.3 L, [place] % (Auto) 2.2, Eos % (Auto) 0.3 , Baso % (Auto) 0.3, Immature Gran # (Auto) 0.0, Neut # (Auto) 5.3, Lymph # ( Auto) 0.6, [place] # (Auto) 0.1 L, Eos # (Auto) 0.0, Baso # (Auto) 0.0 01/20/19 20:00: Stl Occult Blood (IFOB) Negative, Stool Occult Blood #2 No specimen received, Stool Occult Blood #3 No specimen received 01/20/19 15:42: D-Dimer (Manual) 1071.66 01/20/19 11:20: Puncture Site Rr, O2 Saturation 93.0 L, ABG pH 7.377, ABG pCO2 38.3, ABG pO2 70.0 L, ABG HCO3 22.5, ABG Total CO2 24, ABG Base Excess -3 L, Anshu Test +, O2 Delivery Device Nc, Oxygen Liter Flow 2.00 01/20/19 09:07: Sodium 139.7, Potassium 4.41, Chloride 108.2 H, Carbon Dioxide 25.6, Anion Gap 10.31, BUN 34.3 H, Creatinine 1.47 H, Estimated GFR (MDRD) 50.00 , BUN/Creatinine Ratio 23.33, Glucose 106.8 H, Calcium 8.47, Total Bilirubin 0.24, AST 26.7, ALT 13.5, Alkaline Phosphatase 102.0, Total Protein 5.87 L, Albumin 3.30 L, Globulin 2.57, Albumin/Globulin Ratio 1.28 01/20/19 09:07: WBC 6.47, RBC 3.24 L, Hgb 9.2 L, Hct 28.8 L, MCV 88.9, MCH 28.4 , MCHC 31.9, RDW Coeff of Joe 15.3 H, Plt Count 210, Immature Gran % (Auto) 0.3 , Neut % (Auto) 71.4, Lymph % (Auto) 18.2, [place] % (Auto) 5.7, Eos % (Auto) 3.6, Baso % (Auto) 0.8, Immature Gran # (Auto) 0.0, Neut # (Auto) 4.6, Lymph # (Auto ) 1.2, [place] # (Auto) 0.4, Eos # (Auto) 0.2, Baso # (Auto) 0.1 ASSESSMENT: 1. Mild CHF 2. Leg edema 3. Chronic kidney disease 4. Noncompliance RECOMMENDATIONS/PLAN: 1. Decrease IV fluids to 30 cc/hr. 2. Lasix 20 mg IV times one now. Plan and coordination of the patient's care discussed in the presence of Operations Program Manager and Nurse. CONDITION: Stable SCRIBED BY: LYDIA KUMAR District Director scribed while in presence of service performed by KIRAN HEIN/DAWNA/ Dr. FARNAZ DAWKINS on 01/21/19 (0801)
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
--- NOTE | 2019-01-21 13:26 | US ---
EXAM: Bilateral lower extremity venous Doppler History: Bilateral lower extremity pain. Technique: Multiple sonographic images through the bilateral lower extremities were obtained. Color duplex Doppler was used to interrogate vascular flow. Findings: The bilateral common femoral, greater saphenous, profunda, superficial femoral, popliteal, peroneal, posterior tibial and anterior tibial veins demonstrate spontaneous flow with normal compre ssion and normal augmentation. There is bilateral lower extremity subcutaneous edema. Impression: No sonographic evidence for deep venous thrombosis
--- NOTE | 2019-01-21 13:27 | PN ---
DATE OF SERVICE: 01/14/19 SUBJECTIVE: The patient remained alert and sometimes complains of being short of breath but his oxygen saturation is in the lower 90's 92-93 with respiratory rate of 17. Blood pressure was 151/90, pulse rate 97, temperature 98.7. The patient had been afebrile since admission. His appetite is good. He ate 100% of his meals and actually wanted more. He wanted a double portion for his breakfast. LUNGS: Rales in the right lower half of the posterior chest field. No wheezing. Left is clear. ABDOMEN: Nontender. Bowel sounds active CBC done 01/14/19 showed a slightly less hgb 7.7 from 8.4, WBC remained normal, plt count normal is 233, 000. The patient has severe anemia however there is no signs of any external bleeding. His EGFR is 58, sugar 202.5 from 331.8 on admission. Calcium is low 7.78, total protein is also low. Procalcitonin on admission was normal and lactic acid was also normal. The patient was continued on Jardiance, Metformin, Acarbose. Been on Lisinopril and Lantus 15 subcut daily at bedtime. The patient was given Azithromycin 250mg PO and that was changed to 500mg daily. Cefepime was given at 2gram every 8 hours. He also received Lovenox at 40mg SUBCUT daily. CONDITION: About the same. MTDD
[2019-01-21 13:56] VITALS: BP 132/73; TEMP 97.4
--- NOTE | 2019-01-21 14:26 | CONS ---
DATE OF SERVICE: 01/18/19 CONSULT FOLLOWUP SUBJECTIVE: The patient was seen and examined this morning. The patient is being seen on consultation for being short of breath. This morning this patient is cooperative. His echo was done and showed mild hypokinetic left ventricle with ejection fraction of 45%. LVH with enlarged LA cavity and moderate mitral regurgitation. He explained to him about all these findings. The patient is intelligent. He is heavy smoker and uses methamphetamines and alcohol. I explained to him about facts of all this. His heart muscles and strongly advised to quit. A1c goal explained to him, 6-7. Non HDL goal is 100, discussed with him. He agree for 2 units of packed red cells which he yesterday declined. He is strongly advised to followup with the primary care to have further workup for his cause of anemia to be determined. REVIEW OF SYSTEMS: CONSTITUTIONAL: No night sweats. No fatigue, malaise, lethargy. No fever or chills. HEENT: Eyes: No visual changes. No eye pain. No eye discharge. ENT: No runny nose. No epistaxis. No sinus pain. No sore throat. No odynophagia. No ear pain. No congestion. RESPIRATORY: No cough, no congestion. No hemoptysis. CARDIOVASCULAR: No angina symptoms. No CHF symptoms. No atypical chest pain for CAD. No palpitations. Shortness of breath. GASTROINTESTINAL: No abdominal pain. No nausea or vomiting. No diarrhea or constipation. No hematemesis. No hematochezia. GENITOURINARY: No urgency. No frequency. No dysuria. No hematuria. No obstructive symptoms. No discharge. No pain. No significant abnormal bleeding. MUSCULOSKELETAL: No musculoskeletal pain. No joint swelling. No arthritis. NEUROLOGICAL: No headache. No neck pain. No syncope. No seizures. No dizziness. PSYCHIATRIC: Not anxious. No depression. No suicidal thoughts. No homicidal thoughts. SKIN: No rash. No lesions. No wounds. ENDOCRINE: No unexplained weight loss. No weight gain. HEMATOLOGIC/LYMPHATIC: No anemia. No purpura. No petechiae. No prolonged or excessive bleeding. No palpable lymph nodes. PHYSICAL EXAMINATION: VITAL SIGNS: Temperature 97.7, pulse 90, respiratory rate 20, blood pressure 166 /90 and pulse ox 97%. HEENT: Head normocephalic, atraumatic. Eyes: Extraocular muscles are intact. Pupils are equal, round and reactive to light and accommodation. Ears: No lesions. Nose appeared normal. Throat: No exudate or erythema. NECK: Supple. No JVD, no carotid bruit. No lymphadenopathy or thyromegaly. LUNGS: Clear to auscultation. Percussion note normal. Chest symmetrical. HEART: S1, S2, no S3. No murmurs. No cyanosis or clubbing. No ascites. Pulses: Dorsalis pedis and posterior tibial pulses +1 bilaterally. ABDOMEN: Soft. Nontender. Bowel sounds active. No CVA tenderness. No mass felt. EXTREMITIES: No edema. Full range of motion of all extremities, equal. NEUROLOGIC: No focal deficit. Cranial nerves II through XII are grossly intact. No headache, no double vision or headache. SKIN: Not dry. Intact. Turgor - normal. Looks pale. LYMPHATIC: No palpable lymph nodes/no lymphedema. MUSCULOSKELETAL: Normal joints with no swelling. Muscle tone is normal. LABS: HGB 7.6, hct 23, WBC 5,000 normal differential, creatinine 1.4, BUN 21, potassium 4.2. Yesterday the patient declined to have any blood tests done. ASSESSMENT: 1. Shortness of breath likely a combination of sedentary lifestyle, smoking with COPD and hypertension, mild borderline dilated cardiomyopathy and anemia all contributing towards his shortness of breath. The patient declined any further testing in a way of stress echo, says that "My goal is to get this blood and get out of this place." 2. Hypertension which will treat it with increasing the dose of Zestril to 20mg twice a day and add Coreg 3.125 PO twice a day 3. Chronic kidney disease, strongly advised against using NON-steroidal antiinflammatory. Considering the patient's noncompliance with followup, lifestyle, medications is prognosis is poor. RECOMMENDATIONS: 1. Diabetes and all it's complications discussed 2. Counseling for smoking and alcoholism done. ALINA
--- NOTE | 2019-01-21 14:27 | CONS ---
01/17/19: Level 5 01/18/19: Extensive MTDD
--- NOTE | 2019-01-21 14:45 | CONS ---
DATE OF SERVICE: 01/20/19 CONSULT FOLLOWUP SUBJECTIVE: 53 year old white male seen on Consultation for evaluation of shortness of breath. The patient's condition seems to have improve. He is less short of breath. He is clinically looking alot better. His blood pressure seems to be controlled better; 136/85 today. REVIEW OF SYSTEMS: CONSTITUTIONAL: No night sweats. No fatigue, malaise, lethargy. No fever or chills. HEENT: Eyes: No visual changes. No eye pain. No eye discharge. ENT: No runny nose. No epistaxis. No sinus pain. No sore throat. No odynophagia. No ear pain. No congestion. RESPIRATORY: No cough, no congestion. No hemoptysis. CARDIOVASCULAR: No angina symptoms. No CHF symptoms. No atypical chest pain for CAD. No palpitations. No shortness of breath. GASTROINTESTINAL: No abdominal pain. No nausea or vomiting. No diarrhea or constipation. No hematemesis. No hematochezia. GENITOURINARY: No urgency. No frequency. No dysuria. No hematuria. No obstructive symptoms. No discharge. No pain. No significant abnormal bleeding. MUSCULOSKELETAL: No musculoskeletal pain. No joint swelling. No arthritis. NEUROLOGICAL: No headache. No neck pain. No syncope. No seizures. No dizziness. PSYCHIATRIC: Not anxious. No depression. No suicidal thoughts. No homicidal thoughts. SKIN: No rash. No lesions. No wounds. ENDOCRINE: No unexplained weight loss. No weight gain. HEMATOLOGIC/LYMPHATIC: No anemia. No purpura. No petechiae. No prolonged or excessive bleeding. No palpable lymph nodes. PHYSICAL EXAMINATION: VITAL SIGNS: Temperature 97.8, pulse 76,. respiratory rate 18, blood pressure 136/85 and pulse ox 96% with 2 liters. HEENT: Head normocephalic, atraumatic. Eyes: Extraocular muscles are intact. Pupils are equal, round and reactive to light and accommodation. Ears: No lesions. Nose appeared normal. Throat: No exudate or erythema. NECK: Supple. No JVD, no carotid bruit. No lymphadenopathy or thyromegaly. LUNGS:Decreased breath sounds but clear to auscultation. Percussion note normal. Chest symmetrical. HEART: S1, S2, no S3. No murmurs. No cyanosis or clubbing. No ascites. Pulses: Dorsalis pedis and posterior tibial pulses +1 to +2 bilaterally. ABDOMEN: Soft. Nontender. Bowel sounds active. No CVA tenderness. No mass felt. EXTREMITIES: No edema. Full range of motion of all extremities, equal. NEUROLOGIC: No focal deficit. Cranial nerves II through XII are grossly intact. No headache, no double vision or headache. SKIN: Not dry. Intact. Turgor - normal. LYMPHATIC: No palpable lymph nodes/no lymphedema. MUSCULOSKELETAL: Normal joints with no swelling. Muscle tone is normal. LABS: Blood gasses today done on 2 liters showed pO 2 70 with pCO2 34, normal pH, saturation 94%. ASSESSMENT: 1. Pneumonia seems to be clinically resolving 2. COPD The patient has multiple medical problems such as drug abuse, smoking and alcohol abuse. The patient's lifestyle is very poor with his medical problems. PROGNOSIS: Poor RECOMMENDATIONS: 1. Do PFT 2. Three step oxygen test for home oxygen 3. ABG on room air by tomorrow 4. Counseling was done for smoking, alcohol and drug abuse MTDD
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
--- NOTE | 2019-01-22 11:52 | PN ---
DATE OF SERVICE: 01/20/19 @ 8 P.M. SUBJECTIVE: The nurses had mentioned about Mr. Blum's abdomen seemed to be distended and his appetite has decreased. I did go and see him and he denied any pain but he is just somewhat distended. I did examine him at 8 p.m. and the patient is alert and whenI walked into the room, he was talking to one of his daughters and did talk for some time. He told me that he will be able to stay at home with his daughters. I told him that that is good news. I asked him if he has any abdominal pain or leg pain and he denied any. His appetite has decreased but no vomiting, no diarrhea. The abdomen is somewhat tympanitic, slightly protuberant, soft with no muscular guarding. Bowel sounds are slightly hyperactive but no bruit. Rectal examination - anosphincter is competent. The prostate is enlarged and smooth. The stool is brownish in color and soft. There is no blood. The patient's Lovenox was increased to 60 mg every 12 hours because of the sensation of tightness in his legs. There is no tenderness in his legs. Ghislaine's sign is negative and he denied any pain when he was ambulated this evening after 7 p.m. D. dimer was slightly above 1,071. Arterial blood gases are better. Electrolytes close to normal, chloride otherwise normal. BUN elevated 34.3, creatinine 1.47 same as yesterday and EGFR is 50, the same as yesterday. Legs are soft and nontender. Will still proceed with the Doppler studies of the venous system on the lower extremities. The patient will be kept NPO and CT scan of the abdomen and pelvis will be done tonight without contrast plus CBC, CMP, serum amylase and lipase as well as procalcitonin and NT-Pro-BNP. PT and PTT also were included. I did advise the nurses to call me when the results are in. I ordered PSA STAT since bladder was drawn already. Mr. Blum got so emotional after talking to his daughter. He told me that his daughters, the two, will take him to their residence. I told him that is good news. After that he wanted to go home. I told him that he could not go home as we are not done with him. Chest x-ray today was no worse than the previous one, four days ago, but no better. Will keep him NPO temporarily. MTDD
--- NOTE | 2019-01-22 12:54 | PN ---
DATE OF SERVICE: 01/20/19 SUBJECTIVE: The patient is alert, responsive. He has his grandson on the bedside, who is 6 years old going to be 7, named Radu. Again, asked me if he could go home today and I told him no, maybe tomorrow if all things show improvement then he can go home. The daughter is here but was not in the room when I walked in to examine Harsh. OBJECTIVE: He is alert, not dyspneic or tachypneic with no cyanosis. The nurse did tell me earlier that he did complain of abdominal pain but when I asked me if he has , he told me that he does not have any anymore. Both lungs have diminished breath sounds on both sides but no obvious rales that I could hear. It is more diminished on the right than the left. No wheezing inspiratory or expiratory. Heart is audible and regular with good tones. The patient does not have any vital signs except early in the morning 4:50 with temperature of 97.8, pulse 76, blood pressure 136/85, respiratory rate 18, oxygen saturation 96 on 2L of oxygen. The patient's weight was 170 lbs when he was in the emergency room and weight was estimated by the staff. Next weight the next day was 187 lbs, 2.75 ozs. The patient yesterday weighed 180 lbs, 0.86 ozs. Today he weighed 192 lbs, 3.88 ozs. Today is 01/20/19. The patient also did complain of some tightness in both legs but denied any pain. This patient is receiving Lovenox 40 mg subcutaneous daily since admission. A D. dimer was ordered and if it is elevated, the Lovenox would be increased to 1 mg/kg body weight and two doses every 12 hours and Doppler studies are ordered for tomorrow. We do not have any capabilities today. The patient also was sent for a chest x-ray two views. Again, he did tell me in front of his grandson that he wants to go home and is feeling good. I did repeat to him that if all things are looking good that he might likely go home tomorrow. His sputum culture was normal Janette, blood cultures negative after five days. The abdomen today is nontender to palpation. MTDD
--- NOTE | 2019-01-22 13:02 | PN ---
DATE OF SERVICE: 01/19/19 SUBJECTIVE: The patient's hemoglobin today has improved, is 9.3 today and 9.4 yesterday after completion. WBC is still normal and his platelet count is normal 211,000. Blood sugar yesterday was 138.8, today in the morning was 99.5 mg%. GFR has reduced from 52 to 50 but his BUN is increasing 26.5 yesterday and 29.5 today. The patient is not given any IV since he is eating very well but drinking a whole lot more soda other than water. I had advised the nurse to tell him that he needed to drink water. His total protein had been low and remained low but better. His albumin is also increasing. OBJECTIVE: The patient for the first time was laying on his left side. Auscultation of the lungs revealed no rales on the right. Breath sounds are diminished and no rales on the left. There is no wheezing. Heart is audible and regular with good tones. He is again asking to go home or can he go home today and I told him no, we would try to make some more determination that his condition has improved before we will send him home. I did advise him to drink more water rather than soda. Drug screen yesterday, 01/18/19 is now negative for amphetamine and methamphetamine. It remained negative today 01/19/19. [facility]
--- NOTE | 2019-01-22 13:24 | PN ---
DATE OF SERVICE: 01/18/19 SUBJECTIVE: The patient finally consented to have blood transfused and he was given two units. In the past notes also the patient had consented to give information to his sister, Ary. Transfusion was completed. The patient did complain of some shortness of breath but the oxygen saturation was about the same on room air. The patient had no skin eruptions or swelling. The patient also on this day had some behavioral problems/change. Again mentioned that he is going to get out of this place. The patient refuses oxygen as ordered. He is drinking a lot of soda , which is not very good because of the sodium as well as the sugar, although he is drinking a diet soda. Sister was here at 2:12 in the afternoon and brought some oranges. The nurse heard the exchange of shouting or yelling between the patient and the sister. The patient still receiving blood. The patient's demeanor changed after the sister left. Physical findings are about the same. Breath sounds are diminished on both sides with rales on the right. Heart is normal sinus rhythm. Abdomen nontender. Lower extremities - no tenderness. MTDD
--- NOTE | 2019-01-22 13:48 | PN ---
DATE OF SERVICE: 01/16/19 OBJECTIVE: The patient is alert and responsive. The patient's vital signs at 2 p.m. showed a temperature of 97.8, pulse rate 90, blood pressure 160/86, respiratory rate 20, oxygen saturation 93 on room air. He doesn't appear cyanotic or dyspneic. He is also not tachypenic. Breath sounds are diminished on both sides. He does have rales on the right lower half. Chest x-ray done today showed pleural effusion and bilateral infiltrates, both more noticeable than the previous examination. This will be repeated some 4 to 5 days from now. The patient always wanted to ask whether he can go home every time I see him. The patient was positive on methamphetamine and amphetamine on admission and remained positive on 01/15/19 as well as 01/16/19. He admitted using Methamphetamine. 2:17 The patient's blood sugar on 01/15/19 was 184 and no blood sugar today. Blood transfusion was ordered by Dr. Raymond. I did ask him on consult for general evaluation of this patient's other condition. The patient has severe anemia but no signs of external loss. This patient will be referred to GI for colonoscopy and endoscopy. I will try to make that appointment while he is still in the hospital. Nurses advised me about the patient's behavior while the sister was in. He wanted to sign out and I did tell the nurse at that point that he can and we will give him a medication called Doxycycline to continue at home. It had been ordered earlier. When I came back to the hospital , the sister had already left and the patient's behavior has changed. We did order CT scan of the head just to make sure that there is no cerebral problems causing intermittent behavioral changes. CT scan of the head done 01/17/19 showed no acute intracranial abnormalities, right mastoid effusion, unchanged. The patient had a urine drug screen again today, still positive for amphetamine but negative now for methamphetamine. Lungs still has rales on the right side. The patient lays on the right side most of the time. Breath sounds are markedly diminished on both sides but no wheezing. Heart is audible with good tones. Dr. Raymond had informed me that his ejection fraction is about 45%. The patient still did not receive the blood transfusion. [facility]
--- NOTE | 2019-01-22 13:52 | PN ---
DATE OF SERVICE: 01/15/19 SUBJECTIVE: The patient likes to lay on his right side and had been. He does complain of some shortness of breath but his oxygen saturation is satisfactory most of the time. He is not cyanotic, no dyspnea. His left lung is clear but has rales on the right side but no wheezing. Heart is audible and regular. Abdomen is soft and nontender. Bowel sounds are active. 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 The patient denies any pain in both legs. No tenderness to palpation. Vital signs at 2 p.m. temperature 97.9, pulse 92, blood pressure 158/89, respiratory rate 18, oxygen saturation 97, listed as 2L but the patient most of the time doesn't use the oxygen. MTDD
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
--- NOTE | 2019-01-22 14:28 | CONS ---
DATE OF SERVICE: 01/21/19 CONSULT FOLLOWUP SUBJECTIVE: The patient was seen and examined with Nurse Practitioner. The patient has evidence of mild CHF. He will be treated with IV Lasix and Potassium supplements. He was explained about CHF in detail. The patient's education carried out. Also counseling for smoking done. PROGNOSIS: Poor. If the patient's lifestyle with the smoking, drug abuse, alcoholism and poor compliance with the followup physicians ALINA
--- NOTE | 2019-01-22 14:46 | CONS ---
DATE OF SERVICE: 01/19/19 CONSULT FOLLOWUP SUBJECTIVE: 53-year-old white male seen on consultation to evaluate shortness of breath. The patient's shortness of breath is multifactorial as mentioned in earlier notes with sedentary lifestyle, anemia, mild cardiomyopathy, hypertension,, alcoholism. The patient is noncompliant of his lifestyle, medications and followup with physicians. His prognosis is poor. This morning he was found without wearing oxygen. His oxygen saturation dropped to 84%. Arterial blood gases were done on 2L with p02 of 64, pc02 of 40 with pH 7.35 with 91% saturation after 10 minutes of wearing oxygen. REVIEW OF SYSTEMS: CONSTITUTIONAL: No night sweats. No fatigue, malaise, lethargy. No fever or chills. HEENT: Eyes: No visual changes. No eye pain. No eye discharge. ENT: No runny nose. No epistaxis. No sinus pain. No sore throat. No odynophagia. No ear pain. No congestion. RESPIRATORY: No cough, no congestion. No hemoptysis. CARDIOVASCULAR: No angina symptoms. No CHF symptoms. No atypical chest pain for CAD. No palpitations. Shortness of breath on exertion. The patient is a heavy smoker. GASTROINTESTINAL: No abdominal pain. No nausea or vomiting. No diarrhea or constipation. No hematemesis. No hematochezia. GENITOURINARY: No urgency. No frequency. No dysuria. No hematuria. No obstructive symptoms. No discharge. No pain. No significant abnormal bleeding. MUSCULOSKELETAL: No musculoskeletal pain. No joint swelling. No arthritis. NEUROLOGICAL: No headache. No neck pain. No syncope. No seizures. No dizziness. PSYCHIATRIC: Not anxious. No depression. No suicidal thoughts. No homicidal thoughts. SKIN: No rash. No lesions. No wounds. ENDOCRINE: No unexplained weight loss. No weight gain. HEMATOLOGIC/LYMPHATIC: No anemia. No purpura. No petechiae. No prolonged or excessive bleeding. No palpable lymph nodes. PHYSICAL EXAMINATION: VITAL SIGNS: Temperature 97.8, pulse 90, respiratory rate 22, blood pressure 143 /79, pulse ox 93%. HEENT: Head normocephalic, atraumatic. Eyes: Extraocular muscles are intact. Pupils are equal, round and reactive to light and accommodation. Ears: No lesions. Nose appeared normal. Throat: No exudate or erythema. NECK: Supple. No JVD, no carotid bruit. No lymphadenopathy or thyromegaly. LUNGS: Decreased breath sounds but clear to auscultation. Percussion note normal. Chest symmetrical. HEART: S1, S2, no S3. No murmurs. No cyanosis or clubbing. No ascites. Pulses: Dorsalis pedis and posterior tibial pulses +1 to +2 bilaterally. ABDOMEN: Soft. Nontender. Bowel sounds active. No CVA tenderness. No mass felt. EXTREMITIES: No edema. Full range of motion of all extremities, equal. NEUROLOGIC: No focal deficit. Cranial nerves II through XII are grossly intact. No headache, no double vision or headache. SKIN: Not dry. Intact. Turgor - normal. LYMPHATIC: No palpable lymph nodes/no lymphedema. MUSCULOSKELETAL: Normal joints with no swelling. Muscle tone is normal. Potassium is 5. 1 with creatinine of 1.4, BUN 29. The patient probably has chronic kidney disease on the basis of hypertension, diabetes. The patient was started on Coreg and one extra dose of Zestril as his blood pressure is well-controlled today. ASSESSMENT: 1. Respiratory failure with a combination of pneumonia with chronic lung disease. 2. Shortness of breath, multifactorial like sedentary lifestyle, smoking. At the present time, pneumonia has caused shortness of breath also with chronic lung disease. 3. The patient also has borderline LVH with enlarged LA cavity and mildly hyperkinetic left ventricle. PLAN: Will monitor the patient's potassium with chronic kidney disease. The Zestril dose is now 40 so will have to watch the potassium. CONDITION: Stable. MTDD
--- NOTE | 2019-01-30 13:21 | PN ---
DATE OF SERVICE: 01/21/19 SUBJECTIVE: The patient was wanting to go home. In fact I had been called by Parris Armas about 3:00 in the afternoon telling me that Mr. Blum is wanting to go home now. I told Chanda, registered nurse who was in charge of the patient, that I would not be there until I am done at the office. The patient at the time of my discussion with her about 3:00 the patient seemed to be demanding and indeed this patient is demanding most of the time. I did tell Mr. Blum in front of the nurse Parris Armas at 6:20pm that he will be going home but he is not completely well. He still has the fluid in his chest. He may also have some pneumonia. He used to smoke and did not smoke only during this hospitalization but he intended to resume smoking. I told him that it would be good if he would not resume the habit. This time the patient is going home to his daughter. I did tell Mr. Blum that he has multiple medical problems and being noncompliant of his medication makes it worse. He has diabetes mellitus and is not taking the medication. His heart has also decreased in function as well as kidney. He also has severe anemia and I do not know where he is losing blood. He also has a low total protein and albumin which exacerbates the problem. The fluid is going to leak out and he would have some edema of the legs which could be due to the number things such as the low albumin, the kidney problem as well as the heart problem. Repeated to him that I had asked Dr. Raymond the latex spooler to see him along with me and he had done an echocardiogram and his ejection fraction is 46%. The normal is normally about 60% or upper. Also advised him not to take the medications that had not been prescribed to him. He had positive for methamphetamine. He had admitted using the medication. I did advise him that when he goes home to his daughters that he should refrain from being demanding. I do believe that it would be worth wild for him to just ask what he needs. I reemphasized to him that he is not completely well from his problems. He has continuing problems and his kidney problems and heart problems are chronic and that he needs to take of them or else it would deteriorate. He will be given medications to help as well an antibiotic. He needs to be followed up with the clinic and he normal goes to [facility] and I told him to see her at followup, a week from the time of discharge. I asked the patient if he understood. This patient has a challenge since he is totally blind. His insulin will be discontinued and we will see how he does. He probably should get an injection of GLP 1 if he needs an injection to be given once a week such as Trulicity or Ozempic. HARDIKD
--- NOTE | 2019-01-30 14:14 | PN ---
DATE OF SERVICE: 01/21/19 CONVERSATION SUBJECTIVE: The daughter, Darlene, did come in with her son to orange picking supervisor her father, Mr. Alfonso , Harsh Liu. I did discuss more or the same thing with Harsh Blum in the presence of his daughter, Darlene and then a grandchild and also Trevor Toro RN. I told again that Mr. Blum is going home but he is not completely free of his problems. He was admitted because of pneumonia and that has improved or at least it hasn't progressed down hill or worsened. He has fluid in his chest a little bit more on the right and his problems aside from the above consisted of his diabetes which is not controlled but better while he was in the hospital , heart problems consisting of decreased ejection fraction meaning the heart is not pumping as strongly as it should be and his kidney has slowed down meaning it is processes less amount of blood but not close to dialysis but he has a severe anemia and we do not see the cause of the anemia. It needs to be studied and so he is referred a seed cleaner for a colonoscopy as well as endoscopy meaning a light will be put through the rectum to look at the large intestine and also the stomach hopefully one would be able to pinpoint the reason for the anemia and he should not return to smoking since it would be detrimental to him and that also should not return to taking drugs that are not prescribed. He told me that he knows what I am talking about. The daughter also knows and the daughter had known what he had been doing before. Also advised him not to throw tantrums when the things he wants are not followed or observed. I did tell him that it would help very much his care if he would be understanding when he is residing with his daughter. I told him that what I learned about his behavior that he is demanding. That demanding attitude also is manifested while he was in the hospital. He tells the nurses that he wanted to go home and wants to go home now because things he wanted were not done. The patient was complaining of some bloating and so we x-rayed his belly and he has some small bowel distention but no obstruction. I did put him NPO initially and the patient that evening also wanted to go home and called his friend. However he changed his mind and stayed in the hospital. I told him that with his daughter that medication that was prescribed and why it was prescribed. He will be seen in a week either by me or Leny. This patient was told emphatically that he should be resume his insulin or any of the insulin. This patient would need an additional medication that a trial of GLP 1 like Ozempic or Trulcity would be prescribed. This patient was prescribed Jardiance because of his heart problems. It is not only for his diabetes. ALINA
== END 2019-01-21 19:28 | disposition home or self-care (01) | DRG 194 ==
LOC: ED 18:23 → UNDOADMIN 23:52 → MEDSURG B 23:52
PROVIDERS: ADMIT General Practice; ATTEND General Practice
DX: J18.9 Pneumonia, unspecified organism (principal); J44.1 Chronic obstructive pulmonary disease with (acute) exacerbation; I10 Essential (primary) hypertension; E87.6 Hypokalemia; E78.5 Hyperlipidemia, unspecified; R53.1 Weakness; R06.00 Dyspnea, unspecified; R06.01 Orthopnea; R05 Cough; R53.81 Other malaise; R06.02 Shortness of breath
CPT/HCPCS: 36415; 36430; 80048; 80053; 80306; 80307; 81001; 82009; 82150; 82272; 82803; 82962; 83605; 83690; 83880; 84145; 85014; 85018; 85025; 85379; 85610; 85730; 86850; 86900; 86922; 87040; 87070; 93005; 93010; 94640; 94761; 96361; 96365; 99285

== ENCOUNTER 2019-03-15 15:04 | Outpatient (CLI) | payer OTHER | END 2019-03-15 15:05 | disposition home or self-care (01) | LOC: RHC-LAB 15:04 → FCC-LAB 15:05 | PROVIDERS: ATTEND Nurse Practitioner Family | DX: E11.9 Type 2 diabetes mellitus without complications (principal); I50.22 Chronic systolic (congestive) heart failure | CPT/HCPCS: 36415; 80053; 83880; 85025 ==

== ENCOUNTER 2019-04-04 14:34 | Outpatient (CLI) | END 2019-04-04 14:35 | disposition home or self-care (01) | LOC: RHC-LAB 14:34 → FCC-LAB 14:35 | PROVIDERS: ATTEND Family Medicine | DX: E11.9 Type 2 diabetes mellitus without complications (principal) | CPT/HCPCS: 36415; 83037 ==